=== PATIENT | male | born 1940 | race Caucasian/White ===

== ENCOUNTER 2017-04-02 08:24 | Day surgery (SDC) | payer MEDICARE, BC ==
[~2017-04-02 08:24] MED LIST: Lactated Ringers 1,000 ML IV SCH; Lidocaine 1%/Sod Bicarbonate in NS 8.4% 1 ML Syringe PRN; Sodium Chloride 0.9% 10 ML Syringe FLUSH PRN
[2017-04-02] MEDS ORDERED: Lidocaine 1% 4 ML ONE (08:31)
[2017-04-02] MEDS ORDERED: EPINEPHrine 1 MG/ML SDV ONE (08:31)
[2017-04-02] MEDS ORDERED: Ropivacaine 0.5% 5 MG/ML 30 ML SDV ONE (08:31)
--- NOTE | 2017-04-02 09:02 | PCM.PREANE ---
Preanesthetic Assessment - Anesthesia/Transfusion/Family Hx Anesthesia History: Prior Anesthesia Without Reaction Family History of Anesthesia Reaction: No Transfusion History: Prior Transfusion Without Reaction Intubation History: Unknown - Review of Systems General: No Symptoms Pulmonary: No Symptoms (history of COPD, no albuterol useage for 2 years.) Cardiovascular: No Symptoms (History of HTN, History of ASCVD- balloon angioplasty in 1996.), Palpitations (occasionally) Gastrointestinal: No symptoms (GERD) Neurological: No Symptoms (Dysphasia, late effect of CVA- (Patient denies these symptoms noted on H/P)) Other: Reports: Easy Bruising, Sinus Problem (allergic rhinitis), Depression - Physical Assessment NPO Status Date: 04/01/17 NPO Status Time: 20:00 Pulse: 62 O2 Sat by Pulse Oximetry: 96 Respiratory Rate: 16 Blood Pressure: 126/94 Temperature: 36.6 C Height: 1.7 m Weight: 63 kg ASA Class: 2 Mental Status: Alert & Oriented x3 Airway Class: Mallampati = 2 Dentition: Reports: Normal Dentition, Bridge, Missing Tooth/Teeth, Caries Thyro-Mental Finger Breadths: 3 Mouth Opening Finger Breadths: 3 ROM/Head Extension: Full Lungs: Clear to auscultation, Normal respiratory effort Cardiovascular: Regular Rate, Regular Rhythm, No Murmurs - Lab Values: Laboratory Last Values MRSA (PCR) Negative 03/17/17 15:37 Labs reviewed and noted within acceptable ranges to proceed with scheduled procedure. HGB: 13.1 HCT: 38.7 CR: 1.38 - Imaging/EKG Impressions: EKG: sinus bradycardia rate of 59, minimal ST elevation anterior leads, nonspecific intraventricular conduction delay/ (similar to prior EKG) CXR: No significant change since 01/27/2011. Hyperinflation. - Allergies Allergies/Adverse Reactions: Allergies Allergy/AdvReac Type Severity Reaction Status Date / Time No Known Drug Allergies Allergy Other Verified 04/01/17 12:50 - Anesthesia Plan Pre-Op Medication Ordered: Beta Radha Beta Radha: Metoprolol Med Last Dose Date: 04/02/17 Med Last Dose Time: 07:30 - Acknowledgements Anesthesia Type Planned: General Anesthesia (with Right interscalene block under US guidance for post operative pain control requested by Dr. Richmond) Pt an Appropriate Candidate for the Planned Anesthesia: Yes Alternatives and Risks of Anesthesia Discussed w Pt/Guardian: Yes Pt/Guardian Understands and Agrees with Anesthesia Plan: Yes PreAnesthesia Questionnaire HEENT History: Reports: Macular Degeneration Other HEENT History: impacted cerumen, hearing aids, dentures Cardiovascular History: Reports: Hypertension, PTCA, Other (See Below) Other Cardiovascular History: hyperlipedimia Respiratory History: Reports: COPD Gastrointestinal History: Reports: GERD Other Musculoskeletal History: shoulder pain Neurological History: Reports: CVA, Other (See Below) Other Neuro History: lightheadedness Psychiatric History: Reports: Depression, Other (See Below) Other Psychiatric History: insomnia Hematologic History: Reports: Anemia - Past Surgical History GI Surgical History: Reports: Colonoscopy, EGD, Hernia Repair/Other Musculoskeletal Surgical History: Reports: Hip Replacement, Knee Replacement, Shoulder Surgery, Other (See Below) Other Musculoskeletal Surgeries/Procedures:: foot surgery - SUBSTANCE USE Smoking Status *Q: Former Smoker Tobacco Use Within Last Twelve Months: Cigarettes Recreational Drug Use History: No - HOME MEDS Home Medications: Home Meds Albuterol [IJD: Albuterol HFA] 1 puff IH ASDIRECTED PRN 04/01/17 [History] Aspirin 81 mg PO DAILY 04/01/17 [History] Dutasteride [Avodart] 0.5 mg PO DAILY 04/01/17 [History] Metoprolol Succinate/HCTZ [Metoprolol ER-Hctz 100-12.5 mg] 50 mg PO DAILY [History] Multivitamin [Multivitamins] 1 cap PO DAILY 04/01/17 [History] Nitroglycerin [Nitrostat] 0.4 mg SL ASDIRECTED PRN 04/01/17 [History] Omeprazole Magnesium [Prilosec Otc] 20 mg PO DAILY 04/01/17 [History] Rosuvastatin Calcium [Crestor] 20 mg PO DAILY 04/01/17 [History] Tamsulosin [Flomax] 0.4 mg PO DAILY 04/01/17 [History] - CURRENT (IN HOUSE) MEDS Current Meds: Current Medications Lactated Ringer's (Ringers, Lactated) 1,000 mls @ 125 mls/hr IV ASDIRECTED GABY Stop: 04/02/17 23:00 Last Admin: 04/02/17 08:35 Dose: 125 mls/hr Lidocaine/Sodium Bicarbonate (Buffered Lidocaine 1% In Ns 8.4%) 0.25 ml .XX ONETIME PRN PRN Reason: Prior to IV Start Stop: 04/02/17 18:00 Last Admin: 04/02/17 08:34 Dose: 0.25 ml Sodium Chloride (Saline Flush) 10 ml FLUSH ASDIRECTED PRN PRN Reason: Keep Vein Open Stop: 04/02/17 18:00 Discontinued Medications Epinephrine HCl (Adrenalin 1:1000) Confirm Administered Dose 1 mg .ROUTE .STK- MED ONE Stop: 04/02/17 08:32 Fentanyl (Sublimaze) Confirm Administered Dose 100 mcg .ROUTE .STK-MED ONE Stop: 04/02/17 09:05 Lidocaine HCl (Xylocaine-Mpf 1%) Confirm Administered Dose 4 mls @ as directed .ROUTE .STK-MED ONE Stop: 04/02/17 08:32 Ropivacaine (Naropin 0.5%) Confirm Administered Dose 30 ml .ROUTE .STK-MED ONE Stop: 04/02/17 08:32
[2017-04-02] MEDS ORDERED: fentaNYL 100 MCG/2 ML SDV ONE ×2 (09:04→13:02)
[2017-04-02] MEDS ORDERED: EPINEPHrine 1 MG/ML 30 ML MDV ONE (09:42)
[2017-04-02] MEDS ORDERED: Propofol 200 MG/20 ML SDV ONE (10:22)
--- NOTE | 2017-04-02 10:50 | PCM.SN ---
- Free Text/Narrative Note: Anesthesia Note: (Interscalene block note) Dr. Foreman present for the block Date: 04/02/2017 Time Out: 944 Start: 944 Stop: 100 Surgical Procedure: Right Shoulder Video Arhroscopy with Rotator Cuff Repair, Subacromial decompresson Diagnosis: Right Shoulder Rotator Cuff Tear Current Procedure: Right interscalene block under US guidance for postoperative pain control requested by Dr. Richmond. Patient chart reviewed, risk/benefits discussed with patient, consent obtained. Patient positioned supine, monitors/alarms on, oxygen placed via nasal cannula at 2 LPM. IV sedation administered: Fentanyl 50 mcg IV @ 0948, 0951 Right shoulder prepped with two chloropreps. Sterile drapes placed with aseptic technique noted. Under US guidance(sterile US sleeve noted) right subclavian artery visualized along with the right brachial plexus. Plexus followed up to C6 cricoid level, and area localized with 2mls of 1% lidocaine. 22gauge 2 inch stimiplex needle advanced under US with 0.6mV with stimulation of biceps noted. Good stimulation noted with decreased voltage and absent at 0.3mVs. 1ml of Normal Saline injected with loss of stimulation noted to confirm needle not placed intraneurally. Incremental dosing of 5mls with negative aspiration noted prior to each injection of 0.5% ropivacaine with 1:200,000 epinephrine. Total volume=30mls. Vital Signs: 0945 HR: 55 RR: 16 BP: 150/75 Spo2: 100% on 2LPM nasal cannula 0950 HR: 53 RR: 10 BP: 148/67 Spo2: 99% on 2LPM nasal cannula 0955 HR: 51 RR: 14 BP: 123/68 Spo2: 99% on 2LPM nasal cannula 1000 HR: 52 RR: 12 BP: 143/69 Spo2: 98% on 2LPM nasal cannula
[2017-04-02] MEDS ORDERED: ceFAZolin 1 GM Vial ONE ×2 (11:58→15:44)
[2017-04-02] MEDS: Bupivacaine 0.25% 30 ML SDV ONE ×2 (12:54→13:35)
[2017-04-02] MEDS ORDERED: HYDROmorphone 1 MG/ML Syringe ONE ×2 (13:03→16:14)
[2017-04-02] MEDS ORDERED: fentaNYL 100 MCG/2 ML SDV IVPUSH PRN (13:39)
--- NOTE | 2017-04-02 14:18 | PCM.POSTAN ---
POST ANESTHESIA ASSESSMENT - MENTAL STATUS Mental Status: alert, oriented - VITAL SIGNS Pulse Rate: 65 SaO2: 99 Resp Rate: 12 Blood Pressure: 169/89 Temperature: 36.4 C - RESPIRATORY Respiratory Status: respiratory rate WNL, airway patent, O2 saturation stable - CARDIOVASCULAR CV Status: pulse rate WNL, blood pressure stable - GASTROINTESTINAL GI Status: no symptoms - PAIN Pain Score: 0 - POST OP HYDRATION Hydration Status: adequate & stable
[2017-04-02] MEDS ORDERED: NIFEdipine 10 MG Cap PO ONE (14:44)
[2017-04-02] MEDS ORDERED: fentaNYL 250 MCG/5 ML SDV ONE (15:44)
[2017-04-02] MEDS ORDERED: Ondansetron 4 MG/2 ML SDV ONE ×2 (16:11→16:13)
--- NOTE | 2017-04-02 16:32 | PCM48HPAN ---
Post Anesthesia Note - EVALUATION WITHIN 48HRS OF ANESTHETIC Vital Signs in Normal Range: Yes Patient Participated in Evaluation: Yes Respiratory Function Stable: Yes Airway Patent: Yes Cardiovascular Function Stable: Yes Hydration Status Stable: Yes Pain Control Satisfactory: Yes Nausea and Vomiting Control Satisfactory: Yes Mental Status Recovered: Yes
[2017-04-02 16:42] VITALS: BP 132/80
--- NOTE | 2017-04-03 07:37 | PCM.OPNOTE ---
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
--- NOTE | 2017-04-03 08:34 | OR ---
DATE OF OPERATION: 04/02/2017 SURGEON: Ricki Richmond MD OPERATION PERFORMED: Right shoulder arthroscopy with massive rotator cuff repair. PREOPERATIVE DIAGNOSIS: Right shoulder rotator cuff tear. 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 ANESTHESIA: General endotracheal intubation with regional supraclavicular block. ANESTHESIA PROVIDER: Lyndon Foreman MD. PUMPER HELPER: KIERSTEN Rivera. ESTIMATED BLOOD LOSS: 5 mL. COMPLICATIONS: None. CONDITION: Stable. DESCRIPTION OF PROCEDURE: The patient was identified in the preoperative holding area. Proper site was marked and identified by the surgeon. The patient was taken back to the OR. After adequate anesthesia, the patient was placed in the lazy left lateral decubitus position. A wedge was placed posteriorly. All bony prominences were well padded. The patient was secured to the table. The right shoulder was then sterilely prepped and draped in the usual sterile fashion. OR time-out was performed. The patient received 2 g IV Ancef. At this time, 12 pounds of traction was applied to the right upper extremity. Incision was made posteriorly, scope trocar was introduced to the glenohumeral joint. At this time, the patient was noted to have previous biceps rupture with no attachment with the biceps. Subscapularis was intact. 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 The patient was noted to have a massive rotator cuff tear with no rotator cuff tissue, footprint at all. At this time, the scope trocar was removed and placed in the subacromial space. The patient's rotator cuff was noted to be at the level of the glenoid. At this time, a bursectomy was carried out and then a [employer] grasper was used to grab the tendon. It was found that it had little excursion, at this time, a significant work was done to free up the rotator cuff. A Bolivar elevator was placed over the top of the glenoid and release of the rotator cuff was then done at the rotator interval and part of the supra and infraspinatus tendons were split to allow for better excursion. At this time, with medialization of the footprint with a hiwot, I was able to get coverage of most of the footprint after considerable effort to free up the rotator cuff. At this time, 2 Arthrex 4.75 mm SwiveLock anchor was replaced for a medial row. The 2 limbs of FiberTape and the 4 limbs of FiberWire on the anterior anchor were then passed through from anterior to posterior and then in the posterior anchor, this in similar fashion, they were passed from the midportion all the way to the posterior portion of the rotator cuff. At this time for a medial row repair, all the limbs of the FiberWire were tied for medial row repair, which brought over the rotator cuff. Next, these were all cut and the 4 limbs of FiberTape were then brought over laterally and 2 separate lateral row anchors. This found good coverage of the footprint that was medialized secondary to the less excursion of the tendon. At this time, excess saline was drained from the shoulder. A 3-0 nylon simple suture was used for closure of the skin. The patient was placed in a pillow sling and sterile soft dressing, and tolerated the procedure well. KODI /[id number]
== END 2017-04-02 16:35 | disposition home or self-care (01) ==
LOC: JD.SDS 08:24
PROVIDERS: ATTEND Orthopaedic Surgery
PROC: 0LQ14ZZ Repair Right Shoulder Tendon, Percutaneous Endoscopic Approach (ICD-10-PCS; principal; 2017-04-02)
DX: M75.121 Complete rotator cuff tear or rupture of right shoulder, not specified as traumatic (principal); M94.211 Chondromalacia, right shoulder; I25.10 Atherosclerotic heart disease of native coronary artery without angina pectoris; I10 Essential (primary) hypertension; J44.9 Chronic obstructive pulmonary disease, unspecified; J30.9 Allergic rhinitis, unspecified; K21.9 Gastro-esophageal reflux disease without esophagitis; K59.00 Constipation, unspecified; E78.5 Hyperlipidemia, unspecified; E78.00 Pure hypercholesterolemia, unspecified; D64.9 Anemia, unspecified; F32.9 Major depressive disorder, single episode, unspecified; Z79.82 Long term (current) use of aspirin; Z79.899 Other long term (current) drug therapy; Z96.649 Presence of unspecified artificial hip joint; Z96.659 Presence of unspecified artificial knee joint; Z98.890 Other specified postprocedural states; Z87.891 Personal history of nicotine dependence; M25.511 Pain in right shoulder
CPT/HCPCS: 29827; 87641; A9270; C1713; J0171; J0690; J1170; J2405; J2795; J3010; J7120; 01630; 64415; J2704; J3490

== ENCOUNTER 2017-04-25 01:09 | Inpatient (IN) | payer MEDICARE, BC ==
--- NOTE | 2017-04-25 03:11 | EDM.PDOC ---
ED HPI GENERAL MEDICAL PROBLEM - General Chief Complaint: Respiratory Problem Stated Complaint: SOB Time Seen by Provider: 04/25/17 01:29 Source of Information: Reports: Patient, Family (Son), RN Notes Reviewed History Limitations: Reports: Other (The patient is a very poor historian) - History of Present Illness INITIAL COMMENTS - FREE TEXT/NARRATIVE: The patient states that he has been feeling lightheaded and dizzy for about 3 weeks, ever since he had right shoulder rotator cuff arthroscopy (which medical records indicate was on 04/02/2017, per Dr. Richmond). He denies having pain, but states that he can't get comfortable. He states that he was prescribed a pain medication, but only took it for about 2 days before discontinuing it because of hallucinations. He reports that he has had dyspnea that has been coming and going for more than one month, but that it was severe tonight. At this time, he denies having dyspnea, stating that the dyspnea resolved on its own. He states that he has had nausea and 2 episodes of vomiting tonight. He has had constipation. No dysuria, but he has a weak urinary stream. He acknowledges that he has been feeling very anxious, and was prescribed an antidepressant 2 days ago, per Dr. Ceja. No recent fever, diarrhea, chest pain, or palpitations. - Related Data Allergies Allergy/AdvReac Type Severity Reaction Status Date / Time acetaminophen [From Percocet] Allergy Anxiety Verified 04/25/17 01:24 oxycodone [From Percocet] Allergy Anxiety Verified 04/25/17 01:24 Home Meds: Home Meds Albuterol [IJD: Albuterol HFA] 2 puff INH Q4H PRN 04/01/17 [History] Aspirin 81 mg PO DAILY 04/01/17 [History] Dutasteride [Avodart] 0.5 mg PO DAILY 04/01/17 [History] Metoprolol Succinate/HCTZ [Metoprolol ER-Hctz 100-12.5 mg] 50 mg PO DAILY [History] Multivitamin [Multivitamins] 1 cap PO DAILY 04/01/17 [History] Nitroglycerin [Nitrostat] 0.4 mg SL ASDIRECTED PRN 04/01/17 [History] Omeprazole Magnesium [Prilosec Otc] 20 mg PO DAILY 04/01/17 [History] Rosuvastatin Calcium [Crestor] 20 mg PO DAILY 04/01/17 [History] Tamsulosin [Flomax] 0.4 mg PO DAILY 04/01/17 [History] LORazepam [Ativan] 0.5 mg PO QID PRN 04/25/17 [History] Venlafaxine [Effexor XR] 37.5 mg PO DAILY 04/25/17 [History] Past Medical History HEENT History: Reports: Macular Degeneration Cardiovascular History: Reports: CAD, High Cholesterol, Hypertension, [place] Respiratory History: Reports: COPD Gastrointestinal History: Reports: GERD Genitourinary History: Reports: BPH Psychiatric History: Reports: Anxiety, Depression Hematologic History: Reports: Anemia - Past Surgical History HEENT Surgical History: Reports: Cataract Surgery Cardiovascular Surgical History: Reports: Coronary Artery Stent (x 2) GI Surgical History: Reports: Colonoscopy, EGD, Hernia, Inguinal (left) Musculoskeletal Surgical History: Reports: Shoulder Surgery (right rotator cuff , arthroscopically, 04/02/17), Other (See Below) (Pelvis sugery, Right foot surgery) Social & Family History - Tobacco Use Smoking Status *Q: Former Smoker Years of Tobacco use: 10 Packs/Tins Daily: 1.5 Month Tobacco Last Used: Quit 1986 - Caffeine Use Caffeine Use: Reports: Coffee - Alcohol Use Alcohol Use History: No - Recreational Drug Use Recreational Drug Use: No - Living Situation & Occupation Living situation: Reports: , with Spouse Occupation: Retired ED ROS GENERAL - Review of Systems Review Of Systems: See Below Constitutional: Reports: No Symptoms. Denies: Fever HEENT: Reports: No Symptoms Respiratory: Reports: Shortness of Breath. Denies: Cough Cardiovascular: Reports: Lightheadedness. Denies: Chest Pain, Palpitations Endocrine: Reports: No Symptoms GI/Abdominal: Reports: Constipation, Nausea, Vomiting. Denies: Diarrhea : Reports: No Symptoms. Denies: Dysuria Musculoskeletal: Reports: No Symptoms Skin: Reports: No Symptoms Neurological: Reports: No Symptoms Psychiatric: Reports: Anxiety Hematologic/Lymphatic: Reports: No Symptoms Immunologic: Reports: No Symptoms ED EXAM, GENERAL - Physical Exam Exam: See Below Exam Limited By: Physical Impairment (Right arm strapped across abdomen) General Appearance: Alert, WD/WN, No Apparent Distress Eye Exam: Bilateral Eye: Normal Inspection Ears: Normal External Exam, Hearing Grossly Normal Nose: Normal Inspection, No Blood Throat/Mouth: Normal Inspection, Normal Lips, Normal Voice, No Airway Compromise Head: Atraumatic, Normocephalic Neck: Normal Inspection, Full Range of Motion Respiratory/Chest: No Respiratory Distress, Lungs Clear, Normal Breath Sounds, No Accessory Muscle Use Cardiovascular: Normal Peripheral Pulses, Regular Rate, Rhythm, No Gallop, No JVD, No Murmur, No Rub Peripheral Pulses: 4+: Radial (L) GI/Abdominal: Normal Bowel Sounds, Soft, Non-Tender, No Organomegaly, No Distention, No Abnormal Bruit, No Mass (Male) Exam: Deferred Rectal (Males) Exam: Deferred Back Exam: Normal Inspection, Full Range of Motion, NT Extremities: No Pedal Edema, Normal Capillary Refill, Other (RUE strapped to body) Neurological: Alert, Oriented, No Motor/Sensory Deficits, Confused, Slow to Respond Psychiatric: Anxious Skin Exam: Warm, Dry, Intact, Normal Color, No Rash Lymphatic: No Adenopathy EKG INTERPRETATION EKG Date: 04/25/17 Time: 03:08 Rhythm: Other (Sinus bradycardia) Rate (Beats/Min): 58 Jackson: Normal P-Wave: Present QRS: Normal ST-T: Normal (J-point elevation in V2, V3, but no acute ST or T-wave changes) QT: Normal Comparison: NA - No Prior EKG Course - Vital Signs Last Recorded V/S: Last Vital Signs Temp 35.5 C 04/25/17 01:17 Pulse 65 04/25/17 05:56 Resp 16 04/25/17 05:56 BP 152/99 H 04/25/17 01:17 Pulse Ox 95 04/25/17 05:56 Orthostatic Blood Pressure [ 155/84 Standing] Orthostatic Blood Pressure [ 167/93 Sitting] Orthostatic Blood Pressure [ 173/80 Supine] - Orders/Labs/Meds Orders: Active Orders 24 hr Category Date Time Status EKG Documentation Completion [RC] STAT Care 04/25/17 02:55 Active Orthostatic Vital Signs [RC] STAT Care 04/25/17 02:55 Active Ang Chest [CT] Stat Exams 04/25/17 04:08 Taken Chest 2V [CR] Stat Exams 04/25/17 02:55 Taken Sodium Chloride 0.9% [Normal Saline] 1,000 ml Med 04/25/17 04:15 Active IV ASDIRECTED Sodium Chloride 0.9% [Normal Saline] 100 ml Med 04/25/17 04:45 Active IV ASDIRECTED Medication Orders Sodium Chloride (Normal Saline) 1,000 mls @ 150 mls/hr IV ASDIRECTED GABY Last Admin: 04/25/17 04:19 Dose: 150 mls/hr Sodium Chloride (Normal Saline) 100 mls @ 60 mls/hr IV ASDIRECTED GABY Last Admin: 04/25/17 04:52 Dose: 60 mls/hr Labs: Laboratory Tests 04/25/17 04/25/17 04/25/17 Range/Units 03:07 03:07 03:07 WBC 8.11 (4.23-9.07) K/mm3 RBC 4.25 L (4.63-6.08) M/mm3 Hgb 12.5 L (13.7-17.5) gm/L Hct 35.6 L (40.1-51.0) % MCV 83.8 (79.0-92.2) fl MCH 29.4 (25.7-32.2) pg MCHC 35.1 (32.2-35.5) g/dl RDW Std Deviation 37.5 (35.1-43.9) fL Plt Count 232 (163-337) K/mm3 MPV 10.2 (9.4-12.3) fl Neutrophils % (Manual) 74 H (40-60) % Band Neutrophils % 0 (0-10) % Lymphocytes % (Manual) 16 L (20-40) % Atypical Lymphs % 0 % Monocytes % (Manual) 8 (2-10) % Eosinophils % (Manual) 2 (0.8-7.0) % Basophils % (Manual) 0 L (0.2-1.2) Toxic Granulation See note Platelet Estimate Adequate Plt Morphology Comment Normal RBC Morph Comment Normal PT 11.2 (8.0-13.0) SECONDS INR 1.03 APTT 34 (22-36) SECONDS D-Dimer, Quantitative 2.42 H (0.19-0.59) mg/L Puncture Site ABG pH (7.35-7.45) ABG pCO2 (35.0-45.0) mmHg ABG pO2 (80.0-100.0) mmHg ABG HCO3 (22.0-26.0) meq/L Luke Test A-a Gradient mmHg FiO2 (21.00-100.00) % Sodium 124 L (136-145) mEq/L Potassium 4.4 (3.5-5.1) mEq/L Chloride 91 L (98-107) mEq/L Carbon Dioxide 27 (21-32) mEq/L Anion Gap 10.4 (5-15) BUN 16 (7-18) mg/dL Creatinine 1.0 (0.7-1.3) mg/dL Est Cr Clr Drug Dosing 57.42 mL/min Estimated GFR (MDRD) > 60 (>60) mL/min BUN/Creatinine Ratio 16.0 (14-18) Glucose 117 H (83-115) mg/dL Serum Osmolality (280-300) mosm/kg Uric Acid (3.5-7.2) mg/dL Calcium 8.6 (8.5-10.1) mg/dL Magnesium 1.9 (1.8-2.4) mg/dl Total Bilirubin 0.6 (0.2-1.0) mg/dL AST 36 (15-37) U/L ALT 56 (16-63) U/L Alkaline Phosphatase 66 (46-116) U/L Troponin I < 0.017 (0.00-0.056) ng/mL B-Natriuretic Peptide (0-100) pg/mL Total Protein 6.4 (6.4-8.2) g/dl Albumin 3.6 (3.4-5.0) g/dl Globulin 2.8 gm/dL Albumin/Globulin Ratio 1.3 (1-2) TSH 3rd Generation 3.862 H (0.358-3.74) uIU/mL Urine Color (Yellow) Urine Appearance (Clear) Urine pH (5.0-8.0) Ur Specific [place] (1.005-1.030) Urine Protein (Negative) Urine Glucose (UA) (Negative) Urine Ketones (Negative) Urine Occult Blood (Negative) Urine Nitrite (Negative) Urine Bilirubin (Negative) Urine Urobilinogen (0.2-1.0) Ur Leukocyte Esterase (Negative) Urine RBC (0-5) /hpf Urine WBC (0-5) /hpf Ur Epithelial Cells (0-5) /hpf Urine Bacteria (FEW) /hpf Urine Mucus (FEW) /hpf Urine Osmolality (400-1100) mosm/kg Ur Random Sodium (40-220) mEq/L 04/25/17 04/25/17 04/25/17 Range/Units 03:07 03:07 03:20 WBC (4.23-9.07) K/mm3 RBC (4.63-6.08) M/mm3 Hgb (13.7-17.5) gm/L Hct (40.1-51.0) % MCV (79.0-92.2) fl MCH (25.7-32.2) pg MCHC (32.2-35.5) g/dl RDW Std Deviation (35.1-43.9) fL Plt Count (163-337) K/mm3 MPV (9.4-12.3) fl Neutrophils % (Manual) (40-60) % Band Neutrophils % (0-10) % Lymphocytes % (Manual) (20-40) % Atypical Lymphs % % Monocytes % (Manual) (2-10) % Eosinophils % (Manual) (0.8-7.0) % Basophils % (Manual) (0.2-1.2) Toxic Granulation Platelet Estimate Plt Morphology Comment RBC Morph Comment PT (8.0-13.0) SECONDS INR APTT (22-36) SECONDS D-Dimer, Quantitative (0.19-0.59) mg/L Puncture Site Lt radial ABG pH 7.44 (7.35-7.45) ABG pCO2 40.5 (35.0-45.0) mmHg ABG pO2 76.0 L (80.0-100.0) mmHg ABG HCO3 26.9 H (22.0-26.0) meq/L Luke Test Positive A-a Gradient 8 mmHg FiO2 21.00 (21.00-100.00) % Sodium (136-145) mEq/L Potassium (3.5-5.1) mEq/L Chloride (98-107) mEq/L Carbon Dioxide (21-32) mEq/L Anion Gap (5-15) BUN (7-18) mg/dL Creatinine (0.7-1.3) mg/dL Est Cr Clr Drug Dosing mL/min Estimated GFR (MDRD) (>60) mL/min BUN/Creatinine Ratio (14-18) Glucose (83-115) mg/dL Serum Osmolality 255 L (280-300) mosm/kg Uric Acid 4.1 (3.5-7.2) mg/dL Calcium (8.5-10.1) mg/dL Magnesium (1.8-2.4) mg/dl Total Bilirubin (0.2-1.0) mg/dL AST (15-37) U/L ALT (16-63) U/L Alkaline Phosphatase (46-116) U/L Troponin I (0.00-0.056) ng/mL B-Natriuretic Peptide 136 H (0-100) pg/mL Total Protein (6.4-8.2) g/dl Albumin (3.4-5.0) g/dl Globulin gm/dL Albumin/Globulin Ratio (1-2) TSH 3rd Generation (0.358-3.74) uIU/mL Urine Color (Yellow) Urine Appearance (Clear) Urine pH (5.0-8.0) Ur Specific [place] (1.005-1.030) Urine Protein (Negative) Urine Glucose (UA) (Negative) Urine Ketones (Negative) Urine Occult Blood (Negative) Urine Nitrite (Negative) Urine Bilirubin (Negative) Urine Urobilinogen (0.2-1.0) Ur Leukocyte Esterase (Negative) Urine RBC (0-5) /hpf Urine WBC (0-5) /hpf Ur Epithelial Cells (0-5) /hpf Urine Bacteria (FEW) /hpf Urine Mucus (FEW) /hpf Urine Osmolality (400-1100) mosm/kg Ur Random Sodium (40-220) mEq/L 04/25/17 04/25/17 Range/Units 03:40 03:40 WBC (4.23-9.07) K/mm3 RBC (4.63-6.08) M/mm3 Hgb (13.7-17.5) gm/L Hct (40.1-51.0) % MCV (79.0-92.2) fl MCH (25.7-32.2) pg MCHC (32.2-35.5) g/dl RDW Std Deviation (35.1-43.9) fL Plt Count (163-337) K/mm3 MPV (9.4-12.3) fl Neutrophils % (Manual) (40-60) % Band Neutrophils % (0-10) % Lymphocytes % (Manual) (20-40) % Atypical Lymphs % % Monocytes % (Manual) (2-10) % Eosinophils % (Manual) (0.8-7.0) % Basophils % (Manual) (0.2-1.2) Toxic Granulation Platelet Estimate Plt Morphology Comment RBC Morph Comment PT (8.0-13.0) SECONDS INR APTT (22-36) SECONDS D-Dimer, Quantitative (0.19-0.59) mg/L Puncture Site ABG pH (7.35-7.45) ABG pCO2 (35.0-45.0) mmHg ABG pO2 (80.0-100.0) mmHg ABG HCO3 (22.0-26.0) meq/L Luke Test A-a Gradient mmHg FiO2 (21.00-100.00) % Sodium (136-145) mEq/L Potassium (3.5-5.1) mEq/L Chloride (98-107) mEq/L Carbon Dioxide (21-32) mEq/L Anion Gap (5-15) BUN (7-18) mg/dL Creatinine (0.7-1.3) mg/dL Est Cr Clr Drug Dosing mL/min Estimated GFR (MDRD) (>60) mL/min BUN/Creatinine Ratio (14-18) Glucose (83-115) mg/dL Serum Osmolality (280-300) mosm/kg Uric Acid (3.5-7.2) mg/dL Calcium (8.5-10.1) mg/dL Magnesium (1.8-2.4) mg/dl Total Bilirubin (0.2-1.0) mg/dL AST (15-37) U/L ALT (16-63) U/L Alkaline Phosphatase (46-116) U/L Troponin I (0.00-0.056) ng/mL B-Natriuretic Peptide (0-100) pg/mL Total Protein (6.4-8.2) g/dl Albumin (3.4-5.0) g/dl Globulin gm/dL Albumin/Globulin Ratio (1-2) TSH 3rd Generation (0.358-3.74) uIU/mL Urine Color Yellow (Yellow) Urine Appearance Clear (Clear) Urine pH 7.0 (5.0-8.0) Ur Specific [place] 1.015 (1.005-1.030) Urine Protein Negative (Negative) Urine Glucose (UA) Negative (Negative) Urine Ketones Negative (Negative) Urine Occult Blood Negative (Negative) Urine Nitrite Negative (Negative) Urine Bilirubin Negative (Negative) Urine Urobilinogen 1.0 (0.2-1.0) Ur Leukocyte Esterase Negative (Negative) Urine RBC 0-5 (0-5) /hpf Urine WBC 0-5 (0-5) /hpf Ur Epithelial Cells 0-5 (0-5) /hpf Urine Bacteria Few (FEW) /hpf Urine Mucus Not seen (FEW) /hpf Urine Osmolality 265 L (400-1100) mosm/kg Ur Random Sodium 45 (40-220) mEq/L Meds: Medications Generic Name Dose Route Start Last Admin Trade Name Freq PRN Reason Stop Dose Admin Sodium Chloride 1,000 mls @ 150 mls/hr 04/25/17 04:15 04/25/17 04:19 Normal Saline IV 150 mls/hr ASDIRECTED GABY Administration Sodium Chloride 100 mls @ 60 mls/hr 04/25/17 04:45 04/25/17 04:52 Normal Saline IV 60 mls/hr ASDIRECTED GABY Administration Discontinued Medications Generic Name Dose Route Start Last Admin Trade Name Freq PRN Reason Stop Dose Admin Iopamidol 100 ml 04/25/17 04:34 04/25/17 04:52 Isovue-370 (76%) IVPUSH 04/25/17 04:35 100 ml ONETIME ONE Administration Sodium Chloride 10 ml 04/25/17 04:34 04/25/17 04:52 Saline Flush FLUSH 04/25/17 04:35 10 ml ONETIME ONE Administration - Re-Assessments/Exams Free Text/Narrative Re-Assessment/Exam: 04/25/17 03:09 The patient is not orthostatic. 04/25/17 03:35 Two-view chest radiograph appears to be grossly normal. Cardiac silhouette is within normal limits. No pulmonary vascular congestion. No pleural effusions. No focal infiltrate. No pneumothorax. Formal read per the Radiologist pending. 04/25/17 04:11 The patient's sodium has returned significantly depressed at 124, which could explain the patient's sense of lightheadedness and his difficulty in providing a medical history. No prior chemistry panel for comparison. His D-dimer is elevated at 2.42, which could be the result of his recent surgery however, a pulmonary embolus needs to be ruled out, therefore I have ordered a CT angiogram. I have ordered normal saline, which is also indicated as initial treatment of the patient's hyponatremia. 04/25/17 04:17 The patient is on hydrochlorothiazide, which may be responsible for his hyponatremia. In order to facilitate diagnosis, I have added a serum osmolality , serum uric acid, urine osmolality, and urine sodium to the patient's labs. 04/25/17 05:26 The patient's serum osmolality is low at 255, indicating hypotonic hyponatremia. Clinically, he is euvolemic. His BUN is relatively low and his Cr is normal, indicating no renal dysfunction. His urine osmolality is very low at 265 with a normal urine sodium of 45. His serum uric acid level is relatively low at 4.1. 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 Treatment is to stop the thiazide diuretic, which should correct the hyponatremia fairly quickly. 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 04/25/17 05:40 CT angiogram of the chest is read by virtual radiology as: 1. No evidence of pulmonary embolus to the segmental level. 2. No aneurysm of the descending aorta. 3. No dissection of the aorta. 04/25/17 05:[address] Green at 05:53. She agrees to admit the patient to [facility] telemetry. Departure - Departure Time of Disposition: 05:58 Disposition: Admitted As Inpatient 64 Condition: Fair Clinical Impression: Hyponatremia - Discharge Information - My Orders Last 24 Hours: My Active Orders 04/25/17 02:55 EKG Documentation Completion [RC] STAT Orthostatic Vital Signs [RC] STAT Chest 2V [CR] Stat 04/25/17 04:08 Ang Chest [CT] Stat 04/25/17 04:15 Sodium Chloride 0.9% [Normal Saline] 1,000 ml IV ASDIRECTED 04/25/17 04:45 Sodium Chloride 0.9% [Normal Saline] 100 ml IV ASDIRECTED - Assessment/Plan Last 24 Hours: My Active Orders 04/25/17 02:55 EKG Documentation Completion [RC] STAT Orthostatic Vital Signs [RC] STAT Chest 2V [CR] Stat 04/25/17 04:08 Ang Chest [CT] Stat 04/25/17 04:15 Sodium Chloride 0.9% [Normal Saline] 1,000 ml IV ASDIRECTED 04/25/17 04:45 Sodium Chloride 0.9% [Normal Saline] 100 ml IV ASDIRECTED
[2017-04-25] MEDS: Sodium Chloride 0.9% 1,000 ML IV SCH ×2 (04:19→13:15)
[2017-04-25] MEDS ORDERED: Iopamidol 755 Mg/ML 100 ML Bottle IVPUSH ONE (04:34)
[2017-04-25] MEDS ORDERED: Sodium Chloride 0.9% 10 ML Syringe FLUSH ONE (04:34)
[2017-04-25] MEDS ORDERED: Sodium Chloride 0.9% 100 ML IV SCH (04:45)
--- NOTE | 2017-04-25 10:26 | CR ---
Chest: Two views of the chest were obtained. Comparison: No previous chest x-ray is available, study is compared to subsequent chest CT performed as a pulmonary angiogram. Heart size is within normal limits. Tortuous thoracic aorta is seen. Lungs are hyperinflated compatible with emphysematous change. Old appearing left-sided rib fractures are seen. Previous right shoulder surgery is noted. Scoliosis noted within the spine. No acute infiltrates are seen. Impression: 1. Emphysematous change. Other incidental findings. Nothing acute is appreciated. Diagnostic code #2
--- NOTE | 2017-04-25 10:26 | CT ---
CT chest Technique: Multiple axial sections through the chest were obtained. Reconstructed coronal and sagittal images were obtained. Intravenous contrast was utilized. Study was performed as a pulmonary angiogram protocol. Comparison: Previous chest x-ray performed earlier on the same day. Findings: Pulmonary arteries are well opacified. No filling defects are seen to indicate pulmonary embolism. Atherosclerotic change noted within the thoracic aorta. Coronary artery calcification is seen. No pericardial thickening is seen. Cyst is identified within the left kidney measuring 3.1 cm. Small nodular density within the left lung apex most likely due to small area of scarring. There is a small nodule being seen within the right upper lung measuring about 1.5 mm. Second nodule is seen next to the major fissure on the left side within the left lower lung measuring 3 mm. Lungs otherwise are clear. Emphysematous change is seen. Minimal bronchiectasis is present. Bone window settings show scattered degenerative endplate spurring within the spine. Impression: 1. No findings of pulmonary embolism. 2. Several small nodules within the chest. Recommend follow-up noncontrast chest CT in one year to confirm stability. 3. Other incidental findings as noted above. Diagnostic code #9 I agree with preliminary report issued by [facility] ([facility] report finalized on 04/25/17, 6:37 AM Central Time)
--- NOTE | 2017-04-25 10:28 | PCM.HP ---
H&P History of Present Illness - General Date of Service: 04/25/17 Admit Problem/Dx: Admission Diagnosis/Problem Admission Diagnosis/Problem Hyponatremia Source of Information: Patient, Family, Provider History Limitations: Reports: No Limitations - History of Present Illness Initial Comments - Free Text/Narative: 76 year old male who reports feeling lightheaded for several weeks. He has recently had a right shoulder procedure in late March 2017. Associated with the lightheadedness has been SOB. He denies any fever or chills; he has had nausea with vomiting that occurred on the day of admission. The pain medication prescribed by Dr Richmond made him nauseated, he took it roughly two times with the same result. Recently he has had some medication changes which may have included the stopping of HCTZ. Additionally he has had an antidepressant started by his PCP. Labs taken by ED document hyponatremia, a comparison will be made with his lab studies taken at the time of his shoulder procedure, if performed. Onset of Symptoms: Reports: Gradual Duration of Symptoms: Reports: Week(s):, Getting Worse Location: Reports: Generalized Quality: Reports: Same as Previous Episode Improves with: Reports: Medication Worsens with: Reports: Movement Associated Symptoms: Reports: Nausea/Vomiting, Shortness of Breath - Related Data Allergies/Adverse Reactions: Allergies Allergy/AdvReac Type Severity Reaction Status Date / Time acetaminophen [From Percocet] Allergy Anxiety Verified 04/25/17 01:24 oxycodone [From Percocet] Allergy Anxiety Verified 04/25/17 01:24 Home Medications: Home Meds Albuterol [IJD: Albuterol HFA] 2 puff INH Q4HR PRN 04/01/17 [History] Dutasteride [Avodart] 0.5 mg PO DAILY 04/01/17 [History] Multivitamin [Multivitamins] 1 cap PO DAILY 04/01/17 [History] Nitroglycerin [Nitrostat] 0.4 mg SL ASDIRECTED PRN 04/01/17 [History] Omeprazole Magnesium [Prilosec Otc] 20 mg PO DAILY 04/01/17 [History] Rosuvastatin Calcium [Crestor] 20 mg PO DAILY 04/01/17 [History] Tamsulosin [Flomax] 0.4 mg PO DAILY 04/01/17 [History] Aspirin [Ecotrin] 81 mg PO DAILY 04/25/17 [History] LORazepam [Ativan] 0.5 mg PO QID PRN 04/25/17 [History] Metoprolol Tartrate [Lopressor] 50 mg PO DAILY 04/25/17 [History] Venlafaxine [Effexor XR] 37.5 mg PO DAILY 04/25/17 [History] Past Medical History HEENT History: Reports: Macular Degeneration Other HEENT History: impacted cerumen, hearing aids, dentures Cardiovascular History: Reports: CAD, High Cholesterol, Hypertension, [place] Other Cardiovascular History: hyperlipedimia Respiratory History: Reports: COPD Gastrointestinal History: Reports: GERD Genitourinary History: Reports: BPH Other Musculoskeletal History: shoulder pain Neurological History: Reports: CVA, Other (See Below) Other Neuro History: lightheadedness Psychiatric History: Reports: Anxiety, Depression Other Psychiatric History: insomnia Hematologic History: Reports: Anemia - Past Surgical History HEENT Surgical History: Reports: Cataract Surgery Cardiovascular Surgical History: Reports: Coronary Artery Stent GI Surgical History: Reports: Colonoscopy, EGD, Hernia, Inguinal Musculoskeletal Surgical History: Reports: Shoulder Surgery, Other (See Below) Other Musculoskeletal Surgeries/Procedures:: right shoulder surgery 3 weeks ago. previous rtkr and ltkr Social & Family History - Family History Family Medical History: Noncontributory - Tobacco Use Smoking Status *Q: Former Smoker Years of Tobacco use: 6 Packs/Tins Daily: 1.5 Used Tobacco, but Quit: No Month Tobacco Last Used: 10/05/1966 Second Hand Smoke Exposure: No - Caffeine Use Caffeine Use: Reports: Coffee - Recreational Drug Use Recreational Drug Use: No Drug Use in Last 12 Months: No - Living Situation & Occupation Living situation: Reports: , with Spouse Occupation: Retired H&P Review of Systems - Review of Systems: Review Of Systems: See Below General: Reports: Weakness HEENT: Reports: No Symptoms Pulmonary: Reports: Shortness of Breath Cardiovascular: Reports: Lightheadedness Gastrointestinal: Reports: No Symptoms Genitourinary: Reports: No Symptoms Musculoskeletal: Reports: No Symptoms Skin: Reports: No Symptoms Psychiatric: Reports: No Symptoms Neurological: Reports: No Symptoms Hematologic/Lymphatic: Reports: No Symptoms Immunologic: Reports: No Symptoms Exam - Exam Exam: See Below - Vital Signs Vital Signs: Last Vital Signs Temp 36.5 C 04/25/17 07:44 Pulse 58 L 04/25/17 07:44 Resp 18 04/25/17 07:44 BP 158/63 H 04/25/17 07:44 Pulse Ox 96 04/25/17 07:44 Weight: 63.73 kg - Exam Quality Assessment: DVT Prophylaxis General: Alert, Oriented, Cooperative HEENT: Conjunctiva Clear, Hearing Intact, Mucosa Moist & [place], Nares Patent, Normal Nasal Septum, Pupils Equal, Pupils Reactive Neck: Supple, Trachea Midline Lungs: Clear to Auscultation, Normal Respiratory Effort Cardiovascular: Regular Rate, Regular Rhythm GI/Abdominal Exam: Normal Bowel Sounds, Soft, Non-Tender, No Organomegaly (Male) Exam: Deferred Rectal (Males) Exam: Deferred Back Exam: Normal Inspection Extremities: Normal Inspection Skin: Warm Neurological: Cranial Nerves Intact Neuro Extensive - Mental Status: Alert, Oriented x3, Normal Mood/Affect, Normal Cognition, Memory Intact Neuro Extensive - Motor, Sensory, Reflexes: CN II-XII Intact Psychiatric: Alert, Normal Affect, Normal Mood - Patient Data Result Diagrams: 04/26/17 06:04 04/26/17 06:04 *Q Meaningful Use (ADM) - VTE *Q VTE Criteria *Q: - Stroke *Q Stroke Criteria *Q: - AMI *Q AMI Criteria *Q: - Problem List (1) CAD (coronary artery disease) SNOMED Code(s): 81202074 ICD Code: I25.10 - ATHSCL HEART DISEASE OF [place] CORONARY ARTERY W/O ANG PCTRS Status: Acute Current Visit: Yes (2) Hypertension SNOMED Code(s): 68974972 ICD Code: I10 - ESSENTIAL (PRIMARY) HYPERTENSION Status: Acute Current Visit: Yes (3) Hyperlipidemia SNOMED Code(s): 83309075 ICD Code: E78.5 - HYPERLIPIDEMIA, UNSPECIFIED Status: Acute Current Visit : Yes (4) BPH (benign prostatic hyperplasia) SNOMED Code(s): 042882144, 580784035 ICD Code: N40.0 - BENIGN PROSTATIC HYPERPLASIA WITHOUT LOWER URINRY TRACT SYMP Status: Acute Current Visit: Yes (5) COPD (chronic obstructive pulmonary disease) SNOMED Code(s): 40927814 ICD Code: J44.9 - CHRONIC OBSTRUCTIVE PULMONARY DISEASE, UNSPECIFIED Status : Acute Current Visit: Yes (6) GERD (gastroesophageal reflux disease) SNOMED Code(s): 636689816 ICD Code: K21.9 - GASTRO-ESOPHAGEAL REFLUX DISEASE WITHOUT ESOPHAGITIS Status: Acute Current Visit: Yes (7) Myocardial infarct, old SNOMED Code(s): 9547880 ICD Code: I25.2 - OLD MYOCARDIAL INFARCTION Status: Acute Current Visit: Yes (8) GERD (gastroesophageal reflux disease) SNOMED Code(s): 821908824 ICD Code: K21.9 - GASTRO-ESOPHAGEAL REFLUX DISEASE WITHOUT ESOPHAGITIS Status: Acute Current Visit: Yes (9) Anxiety SNOMED Code(s): 10115758 ICD Code: F41.9 - ANXIETY DISORDER, UNSPECIFIED Status: Acute Current Visit: Yes (10) Depression SNOMED Code(s): 33714545 ICD Code: F32.9 - MAJOR DEPRESSIVE DISORDER, SINGLE EPISODE, UNSPECIFIED Status: Acute Current Visit: Yes (11) Hyponatremia SNOMED Code(s): 33837630 ICD Code: E87.1 - HYPO-OSMOLALITY AND HYPONATREMIA Status: Acute Current Visit: Yes Problem List Initiated/Reviewed/Updated: Yes Orders Last 24hrs: Medication Orders Sodium Chloride (Normal Saline) 1,000 mls @ 150 mls/hr IV ASDIRECTED [facility] Last Admin: 04/25/17 04:19 Dose: 150 mls/hr Sodium Chloride (Normal Saline) 100 mls @ 60 mls/hr IV ASDIRECTED [facility] Last Admin: 04/25/17 04:52 Dose: 60 mls/hr Assessment/Plan Comment:: Impression: Lightheadedness, unclear etiology Electrolyte abnormality-hyponatremia, hypovolemia Query diuretic induced. Formerly on thiazide diuretic S/P right shoulder arthroscopy High TSH noted Chronic COPD GERD CAD/[place] HLD HTN Anxiety/Depression Plan: Confirm Be level Review med list Infuse>12 hours isotonic saline Start thermotabs Check thyroid function studies Check random cortisol level DVT/GI prophylaxis SW/PT/OT
[2017-04-25] MEDS ORDERED: Nitroglycerin 0.4 MG Tab.SL SL PRN (11:03)
[2017-04-25] MEDS ORDERED: Ondansetron 4 MG/2 ML SDV IVPUSH PRN (11:10)
[2017-04-25] MEDS: Potassium Chloride/Sodium Chloride Tab PO SCH ×2 (13:15→21:06)
[2017-04-25] MEDS: Metoprolol Tartrate 25 MG Tab PO SCH (21:06)
[2017-04-25] MEDS: LORazepam 0.5 MG Tab PO PRN (21:06)
[2017-04-25] MEDS: Levothyroxine 50 MCG Tab PO SCH (21:06)
[2017-04-26] MEDS: Pantoprazole 40 MG Tab.CR PO SCH (06:48)
[2017-04-26] MEDS: Levothyroxine 50 MCG Tab PO SCH (06:48)
[2017-04-26] MEDS: Tamsulosin 0.4 MG Cap.ER PO SCH (08:54)
[2017-04-26] MEDS: Rosuvastatin 10 MG Tab PO SCH (08:54)
[2017-04-26] MEDS: Venlafaxine 37.5 MG Cap.ER PO SCH (08:54)
[2017-04-26] MEDS: Aspirin 81 MG Tab.EC PO SCH (08:54)
[2017-04-26] MEDS: Metoprolol Tartrate 25 MG Tab PO SCH ×2 (08:55→22:14)
[2017-04-26] MEDS: Potassium Chloride/Sodium Chloride Tab PO SCH ×2 (08:56→22:11)
[2017-04-26] MEDS: Multivitamins,Therapeutic Tab PO SCH (08:56)
[2017-04-26] MEDS: Finasteride 5 MG Tab PO SCH (08:56)
[2017-04-26] MEDS ORDERED: HCTZ PO SCH (09:00)
[2017-04-26] MEDS ORDERED: Aspirin 81 MG Tab.EC PO SCH (09:00)
[2017-04-26] MEDS ORDERED: [UNRECOGNIZED DRUG - OTHER] PO SCH (09:00)
[2017-04-26] MEDS ORDERED: METOPROLOL SUCCINATE PO SCH (09:00)
[2017-04-26] MEDS ORDERED: Magnesium Sulfate/Water 2 GM in Premix Bag 1 BAG IV ONE (10:34)
--- NOTE | 2017-04-26 11:41 | PCM.PN ---
- General Info Date of Service: 04/26/17 Functional Status: Reports: Pain Controlled, Tolerating Diet, Ambulating, Urinating - Review of Systems General: Reports: No Symptoms HEENT: Reports: No Symptoms Pulmonary: Reports: No Symptoms Cardiovascular: Reports: No Symptoms Gastrointestinal: Reports: No Symptoms Genitourinary: Reports: No Symptoms Musculoskeletal: Reports: No Symptoms Skin: Reports: No Symptoms Neurological: Reports: No Symptoms Psychiatric: Reports: No Symptoms - Patient Data Vitals - most recent: Last Vital Signs Temp 36.7 C 04/26/17 08:08 Pulse 60 04/26/17 08:55 Resp 12 04/26/17 08:08 BP 180/74 H 04/26/17 08:55 Pulse Ox 93 L 04/26/17 08:08 Weight - most recent: 63.73 kg I&O - last 24 hours: Intake & Output 04/25/17 04/26/17 04/26/17 22:59 06:59 14:59 Intake Total 2513 1050 Output Total 600 2350 Balance 1913 -1300 Lab Results last 24 hrs: Laboratory Results - last 24 hr 04/25/17 04/25/17 04/25/17 Range/Units 14:25 14:25 20:15 WBC (4.23-9.07) K/mm3 RBC (4.63-6.08) M/mm3 Hgb (13.7-17.5) gm/L Hct (40.1-51.0) % MCV (79.0-92.2) fl MCH (25.7-32.2) pg MCHC (32.2-35.5) g/dl RDW Std Deviation (35.1-43.9) fL Plt Count (163-337) K/mm3 MPV (9.4-12.3) fl Neut % (Auto) (34.0-67.9) % Lymph % (Auto) (21.8-53.1) % [place] % (Auto) (5.3-12.2) % Eos % (Auto) (0.8-7.0) Baso % (Auto) (0.1-1.2) % Neut # (Auto) (1.78-5.38) K/mm3 Lymph # (Auto) (1.32-3.57) K/mm3 [place] # (Auto) (0.30-0.82) K/mm3 Eos # (Auto) (0.04-0.54) K/mm3 Baso # (Auto) (0.01-0.08) K/mm3 Sodium (136-145) mEq/L Potassium (3.5-5.1) mEq/L Chloride (98-107) mEq/L Carbon Dioxide (21-32) mEq/L Anion Gap (5-15) BUN (7-18) mg/dL Creatinine (0.7-1.3) mg/dL Est Cr Clr Drug Dosing mL/min Estimated GFR (MDRD) (>60) mL/min BUN/Creatinine Ratio (14-18) Glucose (83-115) mg/dL Calcium (8.5-10.1) mg/dL Magnesium 1.9 (1.8-2.4) mg/dl Troponin I 0.023 (0.00-0.056) ng/mL B-Natriuretic Peptide 152 H (0-100) pg/mL Ur Random Sodium 44 (40-220) mEq/L 04/26/17 04/26/17 Range/Units 06:04 06:04 WBC 6.66 (4.23-9.07) K/mm3 RBC 4.32 L (4.63-6.08) M/mm3 Hgb 12.7 L (13.7-17.5) gm/L Hct 36.8 L (40.1-51.0) % MCV 85.2 (79.0-92.2) fl MCH 29.4 (25.7-32.2) pg MCHC 34.5 (32.2-35.5) g/dl RDW Std Deviation 39.6 (35.1-43.9) fL Plt Count 209 (163-337) K/mm3 MPV 10.2 (9.4-12.3) fl Neut % (Auto) 73.8 H (34.0-67.9) % Lymph % (Auto) 17.0 L (21.8-53.1) % [place] % (Auto) 7.1 (5.3-12.2) % Eos % (Auto) 1.7 (0.8-7.0) Baso % (Auto) 0.2 (0.1-1.2) % Neut # (Auto) 4.93 (1.78-5.38) K/mm3 Lymph # (Auto) 1.13 L (1.32-3.57) K/mm3 [place] # (Auto) 0.47 (0.30-0.82) K/mm3 Eos # (Auto) 0.11 (0.04-0.54) K/mm3 Baso # (Auto) 0.01 (0.01-0.08) K/mm3 Sodium 131 L (136-145) mEq/L Potassium 4.4 (3.5-5.1) mEq/L Chloride 99 (98-107) mEq/L Carbon Dioxide 24 (21-32) mEq/L Anion Gap 12.4 (5-15) BUN 8 (7-18) mg/dL Creatinine 0.9 (0.7-1.3) mg/dL Est Cr Clr Drug Dosing 60.35 mL/min Estimated GFR (MDRD) > 60 (>60) mL/min BUN/Creatinine Ratio 8.9 L (14-18) Glucose 89 (83-115) mg/dL Calcium 8.7 (8.5-10.1) mg/dL Magnesium (1.8-2.4) mg/dl Troponin I (0.00-0.056) ng/mL B-Natriuretic Peptide (0-100) pg/mL Ur Random Sodium (40-220) mEq/L Med Orders - Current: Current Medications Aspirin (Halfprin) 81 mg PO DAILY [facility] Last Admin: 04/26/17 08:54 Dose: 81 mg Finasteride (Proscar) 5 mg PO DAILY [facility] Last Admin: 04/26/17 08:56 Dose: 5 mg Magnesium Sulfate 2 gm/ Premix 50 mls @ 25 mls/hr IV ONETIME ONE Stop: 04/26/17 12:33 Sodium Chloride (Normal Saline) 1,000 mls @ 100 mls/hr IV ASDIRECTED [facility] Stop: 04/26/17 20:00 Levothyroxine Sodium (Synthroid) 50 mcg PO ACBREAKFAST [facility] Last Admin: 04/26/17 06:48 Dose: 50 mcg Lorazepam (Ativan) 0.5 mg PO QID PRN PRN Reason: Anxiety Last Admin: 04/25/17 21:06 Dose: 0.5 mg Metoprolol Tartrate (Lopressor) 25 mg PO BID [facility] Last Admin: 04/26/17 08:55 Dose: 25 mg Multivitamins (Thera) 1 each PO DAILY [facility] Last Admin: 04/26/17 08:56 Dose: 1 each Nitroglycerin (Nitrostat) 0.4 mg SL ASDIRECTED PRN PRN Reason: Chest Pain Ondansetron HCl (Zofran) 4 mg IVPUSH Q8H PRN PRN Reason: Nausea/Vomiting Oral Electrolytes (Thermotabs) 1 each PO BID [facility] Last Admin: 04/26/17 08:56 Dose: 1 each Pantoprazole Sodium (Protonix) 40 mg PO DAILY@0700 [facility] Last Admin: 04/26/17 06:48 Dose: 40 mg Rosuvastatin Calcium (Crestor) 20 mg PO DAILY [facility] Last Admin: 04/26/17 08:54 Dose: 20 mg Tamsulosin HCl (Flomax) 0.4 mg PO DAILY [facility] Last Admin: 04/26/17 08:54 Dose: 0.4 mg Venlafaxine HCl (Effexor Xr) 37.5 mg PO DAILY [facility] Last Admin: 04/26/17 08:54 Dose: 37.5 mg Discontinued Medications Aspirin (Halfprin) 81 mg PO DAILY [facility] Sodium Chloride (Normal Saline) 1,000 mls @ 150 mls/hr IV ASDIRECTED [facility] Last Admin: 04/25/17 13:15 Dose: 150 mls/hr Sodium Chloride (Normal Saline) 100 mls @ 60 mls/hr IV ASDIRECTED [facility] Last Admin: 04/25/17 04:52 Dose: 60 mls/hr Iopamidol (Isovue-370 (76%)) 100 ml IVPUSH ONETIME ONE Stop: 04/25/17 04:35 Last Admin: 04/25/17 04:52 Dose: 100 ml Non-Formulary Medication (Metoprolol Succinate/Hctz [Metoprolol Er-Hctz 100- 12.5 Mg]) 50 mg PO DAILY [facility] Sodium Chloride (Saline Flush) 10 ml FLUSH ONETIME ONE Stop: 04/25/17 04:35 Last Admin: 04/25/17 04:52 Dose: 10 ml - Exam Quality Assessment: DVT prophylaxis General: alert, oriented, cooperative, no acute distress HEENT: Pupils equal, Pupils reactive, EOMI, Mucous membr. moist/pink Neck: supple, trachea midline Lungs: Normal Respiratory Effort Cardiovascular: Regular Rate, Regular Rhythm GI/Abdominal Exam: Normal Bowel Sounds, Soft, Non-Tender, No Organomegaly, No Distention (Male) Exam: Deferred Back Exam: Normal Inspection Extremities: Normal Inspection, No Pedal Edema Skin: warm Wound/Incisions: dressing dry and intact (right shoulder) Neurological: no new focal deficit Psy/Mental Status: alert, normal affect, normal mood - Problem List & Annotations (1) CAD (coronary artery disease) SNOMED Code(s): 05818447 Code(s): I25.10 - ATHSCL HEART DISEASE OF [place] CORONARY ARTERY W/O ANG PCTRS Status: Acute Current Visit: Yes (2) Hypertension SNOMED Code(s): 94999164 Code(s): I10 - ESSENTIAL (PRIMARY) HYPERTENSION Status: Acute Current Visit: Yes (3) Hyperlipidemia SNOMED Code(s): 66209053 Code(s): E78.5 - HYPERLIPIDEMIA, UNSPECIFIED Status: Acute Current Visit : Yes (4) BPH (benign prostatic hyperplasia) SNOMED Code(s): 816567111, 516861185 Code(s): N40.0 - BENIGN PROSTATIC HYPERPLASIA WITHOUT LOWER URINRY TRACT SYMP Status: Acute Current Visit: Yes (5) COPD (chronic obstructive pulmonary disease) SNOMED Code(s): 80855339 Code(s): J44.9 - CHRONIC OBSTRUCTIVE PULMONARY DISEASE, UNSPECIFIED Status : Acute Current Visit: Yes (6) GERD (gastroesophageal reflux disease) SNOMED Code(s): 148019148 Code(s): K21.9 - GASTRO-ESOPHAGEAL REFLUX DISEASE WITHOUT ESOPHAGITIS Status: Acute Current Visit: Yes (7) Myocardial infarct, old SNOMED Code(s): 9432351 Code(s): I25.2 - OLD MYOCARDIAL INFARCTION Status: Acute Current Visit: Yes (8) GERD (gastroesophageal reflux disease) SNOMED Code(s): 073285578 Code(s): K21.9 - GASTRO-ESOPHAGEAL REFLUX DISEASE WITHOUT ESOPHAGITIS Status: Acute Current Visit: Yes (9) Anxiety SNOMED Code(s): 15420713 Code(s): F41.9 - ANXIETY DISORDER, UNSPECIFIED Status: Acute Current Visit: Yes (10) Depression SNOMED Code(s): 02264735 Code(s): F32.9 - MAJOR DEPRESSIVE DISORDER, SINGLE EPISODE, UNSPECIFIED Status: Acute Current Visit: Yes (11) Hyponatremia SNOMED Code(s): 74125961 Code(s): E87.1 - HYPO-OSMOLALITY AND HYPONATREMIA Status: Acute Current Visit: Yes - Problem List Review Problem List Initiated/Reviewed/Updated: Yes - My Orders Last 24 Hours: My Active Orders 04/25/17 11:03 LORazepam [Ativan] 0.5 mg PO QID PRN Nitroglycerin [Nitrostat] 0.4 mg SL ASDIRECTED PRN 04/25/17 11:10 Ondansetron [Zofran] 4 mg IVPUSH Q8H PRN 04/25/17 11:15 Potassium Chloride/NaCl [Thermotabs] 1 each PO BID 04/25/17 14:52 Code Status [Resuscitation Status] Routine 04/25/17 21:00 Levothyroxine [Synthroid] 50 mcg PO ACBREAKFAST Metoprolol Tartrate [Lopressor] 25 mg PO BID 04/25/17 22:40 Up ad [place] [RC] ASDIRECTED 04/26/17 07:00 Pantoprazole [ProTONIX] 40 mg PO DAILY@0700 04/26/17 09:00 Aspirin [Halfprin] 81 mg PO DAILY Finasteride [Proscar] 5 mg PO DAILY Multivitamins,Therapeutic [Thera] 1 each PO DAILY Rosuvastatin [Crestor] 20 mg PO DAILY Tamsulosin [Flomax] 0.4 mg PO DAILY Venlafaxine [Effexor XR] 37.5 mg PO DAILY 04/26/17 10:34 Magnesium Sulfate/Water [Magnesium Sulfate 2 GM in Water 50 ML] 2 gm Premix Bag 1 bag IV ONETIME 04/26/17 14:00 Sodium Chloride 0.9% [Normal Saline] 1,000 ml IV ASDIRECTED 04/26/17 Lunch Heart Healthy Diet [DIET] 04/27/17 05:00 BASIC METABOLIC PANEL,BMP [CHEM] DAILY CBC WITH AUTO DIFF [HEME] DAILY CORTISOL [REF] Routine LIPID PANEL [CHEM] Routine MAGNESIUM [CHEM] Routine T4 FREE [CHEM] Routine 04/28/17 05:00 BASIC METABOLIC PANEL,BMP [CHEM] DAILY CBC WITH AUTO DIFF [HEME] DAILY 04/29/17 05:00 BASIC METABOLIC PANEL,BMP [CHEM] DAILY CBC WITH AUTO DIFF [HEME] DAILY - Plan Plan:: Impression: Lightheadedness, resolved after hydration Electrolyte abnormality-hyponatremia, hypovolemia Query current diuretic use. Formerly on thiazide diuretic S/P right shoulder arthroscopy High TSH noted Chronic COPD GERD CAD/[place] HLD HTN Anxiety/Depression Plan: Review med list Infuse> 6 hours isotonic saline today while awake Continue thermotabs Check thyroid function studies Check random cortisol level DVT/GI prophylaxis SW/PT/OT
[2017-04-26] MEDS ORDERED: Sodium Chloride 0.9% 1,000 ML IV SCH (14:00)
[2017-04-26] MEDS: LORazepam 0.5 MG Tab PO PRN (22:12)
[2017-04-26] MEDS: hydrALAZINE 20 MG/ML SDV IVPUSH PRN (22:14)
[2017-04-27] MEDS: LORazepam 0.5 MG Tab PO PRN (03:35)
[2017-04-27] MEDS: Pantoprazole 40 MG Tab.CR PO SCH (06:23)
[2017-04-27] MEDS: Levothyroxine 50 MCG Tab PO SCH (06:23)
[2017-04-27] MEDS: Rosuvastatin 10 MG Tab PO SCH (08:25)
[2017-04-27] MEDS: Venlafaxine 37.5 MG Cap.ER PO SCH (08:26)
[2017-04-27] MEDS: Aspirin 81 MG Tab.EC PO SCH (08:26)
[2017-04-27] MEDS: Potassium Chloride/Sodium Chloride Tab PO SCH ×2 (08:26→20:45)
[2017-04-27] MEDS: Multivitamins,Therapeutic Tab PO SCH (08:26)
[2017-04-27] MEDS: Tamsulosin 0.4 MG Cap.ER PO SCH (08:26)
[2017-04-27] MEDS: Finasteride 5 MG Tab PO SCH (08:27)
[2017-04-27] MEDS: Metoprolol Tartrate 25 MG Tab PO SCH ×2 (08:27→20:45)
[2017-04-27] MEDS ORDERED: Sodium Chloride 3% 500 ML IV SCH (15:30)
--- NOTE | 2017-04-27 15:45 | PCM.PN ---
- General Info Date of Service: 04/27/17 Functional Status: Reports: Pain Controlled, Tolerating Diet, Ambulating - Review of Systems General: Reports: No Symptoms HEENT: Reports: No Symptoms Pulmonary: Reports: No Symptoms Cardiovascular: Reports: No Symptoms Gastrointestinal: Reports: No Symptoms Genitourinary: Reports: No Symptoms Musculoskeletal: Reports: No Symptoms Skin: Reports: No Symptoms Neurological: Reports: No Symptoms Psychiatric: Reports: No Symptoms - Patient Data Vitals - Most Recent: Last Vital Signs Temp 36.6 C 04/27/17 12:09 Pulse 58 L 04/27/17 12:09 Resp 14 04/27/17 12:09 BP 153/73 H 04/27/17 12:09 Pulse Ox 97 04/27/17 12:09 Weight - Most Recent: 62.732 kg I&O - Last 24 Hours: Intake & Output 04/27/17 04/27/17 04/27/17 06:59 14:59 22:59 Intake Total 1200 180 180 Output Total 1300 Balance -100 180 180 Lab Results Last 24 Hours: Laboratory Results - last 24 hr 04/27/17 04/27/17 Range/Units 05:40 05:40 WBC 9.10 H (4.23-9.07) K/mm3 RBC 4.37 L (4.63-6.08) M/mm3 Hgb 12.8 L (13.7-17.5) gm/L Hct 37.0 L (40.1-51.0) % MCV 84.7 (79.0-92.2) fl MCH 29.3 (25.7-32.2) pg MCHC 34.6 (32.2-35.5) g/dl RDW Std Deviation 39.8 (35.1-43.9) fL Plt Count 213 (163-337) K/mm3 MPV 10.4 (9.4-12.3) fl Neut % (Auto) 79.1 H (34.0-67.9) % Lymph % (Auto) 12.6 L (21.8-53.1) % [place] % (Auto) 7.4 (5.3-12.2) % Eos % (Auto) 0.7 L (0.8-7.0) Baso % (Auto) 0.1 (0.1-1.2) % Neut # (Auto) 7.20 H (1.78-5.38) K/mm3 Lymph # (Auto) 1.15 L (1.32-3.57) K/mm3 [place] # (Auto) 0.67 (0.30-0.82) K/mm3 Eos # (Auto) 0.06 (0.04-0.54) K/mm3 Baso # (Auto) 0.01 (0.01-0.08) K/mm3 Sodium 128 L (136-145) mEq/L Potassium 4.1 (3.5-5.1) mEq/L Chloride 95 L (98-107) mEq/L Carbon Dioxide 24 (21-32) mEq/L Anion Gap 13.1 (5-15) BUN 13 (7-18) mg/dL Creatinine 0.9 (0.7-1.3) mg/dL Est Cr Clr Drug Dosing 60.02 mL/min Estimated GFR (MDRD) > 60 (>60) mL/min BUN/Creatinine Ratio 14.4 (14-18) Glucose 100 (83-115) mg/dL Calcium 8.5 (8.5-10.1) mg/dL Magnesium 2.1 (1.8-2.4) mg/dl Triglycerides 91 (<150) mg/dL Cholesterol 98 (<200) mg/dL LDL Cholesterol Direct 43 (<100) mg/dL HDL Cholesterol 44.0 (40-59) mg/dL Free T4 1.47 H (0.76-1.46) ng/dL Med Orders - Current: Current Medications Aspirin (Halfprin) 81 mg PO DAILY [facility] Last Admin: 04/27/17 08:26 Dose: 81 mg Finasteride (Proscar) 5 mg PO DAILY [facility] Last Admin: 04/27/17 08:27 Dose: 5 mg Hydralazine HCl (Apresoline) 20 mg IVPUSH Q8H PRN PRN Reason: Hypertension Last Admin: 04/26/17 22:14 Dose: 20 mg Sodium Chloride (Sodium Chloride 3%) 500 mls @ 12 mls/hr IV ASDIRECTED [facility] Levothyroxine Sodium (Synthroid) 50 mcg PO ACBREAKFAST [facility] Last Admin: 04/27/17 06:23 Dose: 50 mcg Lorazepam (Ativan) 0.5 mg PO QID PRN PRN Reason: Anxiety Last Admin: 04/27/17 03:35 Dose: 0.5 mg Metoprolol Tartrate (Lopressor) 25 mg PO BID [facility] Last Admin: 04/27/17 08:27 Dose: 25 mg Multivitamins (Thera) 1 each PO DAILY [facility] Last Admin: 04/27/17 08:26 Dose: 1 each Nitroglycerin (Nitrostat) 0.4 mg SL ASDIRECTED PRN PRN Reason: Chest Pain Ondansetron HCl (Zofran) 4 mg IVPUSH Q8H PRN PRN Reason: Nausea/Vomiting Oral Electrolytes (Thermotabs) 1 each PO BID [facility] Last Admin: 04/27/17 08:26 Dose: 1 each Pantoprazole Sodium (Protonix) 40 mg PO DAILY@0700 [facility] Last Admin: 04/27/17 06:23 Dose: 40 mg Rosuvastatin Calcium (Crestor) 20 mg PO DAILY [facility] Last Admin: 04/27/17 08:25 Dose: 20 mg Tamsulosin HCl (Flomax) 0.4 mg PO DAILY [facility] Last Admin: 04/27/17 08:26 Dose: 0.4 mg Venlafaxine HCl (Effexor Xr) 37.5 mg PO DAILY [facility] Last Admin: 04/27/17 08:26 Dose: 37.5 mg Discontinued Medications Aspirin (Halfprin) 81 mg PO DAILY [facility] Sodium Chloride (Normal Saline) 1,000 mls @ 150 mls/hr IV ASDIRECTED [facility] Last Admin: 04/25/17 13:15 Dose: 150 mls/hr Sodium Chloride (Normal Saline) 100 mls @ 60 mls/hr IV ASDIRECTED [facility] Last Admin: 04/25/17 04:52 Dose: 60 mls/hr Magnesium Sulfate 2 gm/ Premix 50 mls @ 25 mls/hr IV ONETIME ONE Stop: 04/26/17 12:33 Last Admin: 04/26/17 12:23 Dose: 25 mls/hr Sodium Chloride (Normal Saline) 1,000 mls @ 100 mls/hr IV ASDIRECTED [facility] Stop: 04/26/17 20:00 Last Admin: 04/26/17 13:51 Dose: 100 mls/hr Iopamidol (Isovue-370 (76%)) 100 ml IVPUSH ONETIME ONE Stop: 04/25/17 04:35 Last Admin: 04/25/17 04:52 Dose: 100 ml Non-Formulary Medication (Metoprolol Succinate/Hctz [Metoprolol Er-Hctz 100- 12.5 Mg]) 50 mg PO DAILY [facility] Sodium Chloride (Saline Flush) 10 ml FLUSH ONETIME ONE Stop: 04/25/17 04:35 Last Admin: 04/25/17 04:52 Dose: 10 ml - Exam Quality Assessment: DVT Prophylaxis General: Alert, Oriented, Cooperative, No Acute Distress HEENT: Pupils Equal, Pupils Reactive, EOMI, Mucous Membr. Moist/[place] Neck: Supple, Trachea Midline Lungs: Normal Respiratory Effort Cardiovascular: Regular Rate, Regular Rhythm GI/Abdominal Exam: Normal Bowel Sounds, Soft, Non-Tender, No Organomegaly, No Distention (Male) Exam: Deferred Back Exam: Normal Inspection Extremities: Normal Inspection Skin: Warm Neurological: No New Focal Deficit, Normal Gait, Normal Speech Psy/Mental Status: Alert, Normal Affect, Normal Mood - Problem List & Annotations (1) CAD (coronary artery disease) SNOMED Code(s): 95750310 Code(s): I25.10 - ATHSCL HEART DISEASE OF [place] CORONARY ARTERY W/O ANG PCTRS Status: Acute Current Visit: Yes (2) Hypertension SNOMED Code(s): 62342465 Code(s): I10 - ESSENTIAL (PRIMARY) HYPERTENSION Status: Acute Current Visit: Yes (3) Hyperlipidemia SNOMED Code(s): 98789444 Code(s): E78.5 - HYPERLIPIDEMIA, UNSPECIFIED Status: Acute Current Visit : Yes (4) BPH (benign prostatic hyperplasia) SNOMED Code(s): 535721683, 859996451 Code(s): N40.0 - BENIGN PROSTATIC HYPERPLASIA WITHOUT LOWER URINRY TRACT SYMP Status: Acute Current Visit: Yes (5) COPD (chronic obstructive pulmonary disease) SNOMED Code(s): 33379204 Code(s): J44.9 - CHRONIC OBSTRUCTIVE PULMONARY DISEASE, UNSPECIFIED Status : Acute Current Visit: Yes (6) GERD (gastroesophageal reflux disease) SNOMED Code(s): 834178084 Code(s): K21.9 - GASTRO-ESOPHAGEAL REFLUX DISEASE WITHOUT ESOPHAGITIS Status: Acute Current Visit: Yes (7) Myocardial infarct, old SNOMED Code(s): 4015635 Code(s): I25.2 - OLD MYOCARDIAL INFARCTION Status: Acute Current Visit: Yes (8) GERD (gastroesophageal reflux disease) SNOMED Code(s): 853733325 Code(s): K21.9 - GASTRO-ESOPHAGEAL REFLUX DISEASE WITHOUT ESOPHAGITIS Status: Acute Current Visit: Yes (9) Anxiety SNOMED Code(s): 17465816 Code(s): F41.9 - ANXIETY DISORDER, UNSPECIFIED Status: Acute Current Visit: Yes (10) Depression SNOMED Code(s): 86959604 Code(s): F32.9 - MAJOR DEPRESSIVE DISORDER, SINGLE EPISODE, UNSPECIFIED Status: Acute Current Visit: Yes (11) Hyponatremia SNOMED Code(s): 51126802 Code(s): E87.1 - HYPO-OSMOLALITY AND HYPONATREMIA Status: Acute Current Visit: Yes - Problem List Review Problem List Initiated/Reviewed/Updated: Yes - My Orders Last 24 Hours: My Active Orders 04/26/17 20:23 hydrALAZINE [Apresoline] 20 mg IVPUSH Q8H PRN 04/27/17 05:40 CORTISOL [REF] Routine 04/27/17 15:30 Sodium Chloride 3% 500 ml IV ASDIRECTED 04/28/17 05:00 BASIC METABOLIC PANEL,BMP [CHEM] DAILY CBC WITH AUTO DIFF [HEME] DAILY 04/29/17 05:00 BASIC METABOLIC PANEL,BMP [CHEM] DAILY CBC WITH AUTO DIFF [HEME] DAILY - Plan Plan:: Impression: Lightheadedness, resolved after hydration Electrolyte abnormality-hyponatremia, hypovolemia Query current diuretic use. Formerly on thiazide diuretic S/P right shoulder arthroscopy High TSH noted Chronic COPD GERD CAD/[place] HLD HTN Anxiety/Depression Plan: Infuse hypertonic saline today Continue thermotabs Check thyroid function studies Check random cortisol level Ortho walk in appt per Beatriz at [facility] on 04/28/17. DVT/GI prophylaxis SW/PT/OT
[2017-04-28] MEDS: Levothyroxine 50 MCG Tab PO SCH (06:18)
[2017-04-28] MEDS: Pantoprazole 40 MG Tab.CR PO SCH (06:18)
[2017-04-28] MEDS: Multivitamins,Therapeutic Tab PO SCH (09:38)
[2017-04-28] MEDS: Potassium Chloride/Sodium Chloride Tab PO SCH ×4 (09:38→20:43)
[2017-04-28] MEDS: Finasteride 5 MG Tab PO SCH (09:39)
[2017-04-28] MEDS: Tamsulosin 0.4 MG Cap.ER PO SCH (09:40)
[2017-04-28] MEDS: Aspirin 81 MG Tab.EC PO SCH (09:40)
[2017-04-28] MEDS: Metoprolol Tartrate 25 MG Tab PO SCH ×2 (09:40→20:43)
[2017-04-28] MEDS: Rosuvastatin 10 MG Tab PO SCH (09:40)
[2017-04-28] MEDS: Venlafaxine 37.5 MG Cap.ER PO SCH (09:40)
--- NOTE | 2017-04-28 13:21 | PCM.PN ---
- General Info Date of Service: 04/28/17 - Patient Data Vitals - Most Recent: Last Vital Signs Temp 36.9 C 04/28/17 11:59 Pulse 54 L 04/28/17 11:59 Resp 14 04/28/17 11:59 BP 140/76 04/28/17 11:59 Pulse Ox 95 04/28/17 11:59 Weight - Most Recent: 62.596 kg I&O - Last 24 Hours: Intake & Output 04/27/17 04/28/17 04/28/17 22:59 06:59 14:59 Intake Total 972 720 240 Output Total 7 800 Balance 965 -80 240 Lab Results Last 24 Hours: Laboratory Results - last 24 hr 04/27/17 04/28/17 04/28/17 Range/Units 05:40 05:28 05:28 WBC 7.55 (4.23-9.07) K/mm3 RBC 4.07 L (4.63-6.08) M/mm3 Hgb 12.1 L (13.7-17.5) gm/L Hct 34.7 L (40.1-51.0) % MCV 85.3 (79.0-92.2) fl MCH 29.7 (25.7-32.2) pg MCHC 34.9 (32.2-35.5) g/dl RDW Std Deviation 39.7 (35.1-43.9) fL Plt Count 191 (163-337) K/mm3 MPV 10.4 (9.4-12.3) fl Neut % (Auto) 75.6 H (34.0-67.9) % Lymph % (Auto) 15.1 L (21.8-53.1) % [place] % (Auto) 7.7 (5.3-12.2) % Eos % (Auto) 1.2 (0.8-7.0) Baso % (Auto) 0.1 (0.1-1.2) % Neut # (Auto) 5.71 H (1.78-5.38) K/mm3 Lymph # (Auto) 1.14 L (1.32-3.57) K/mm3 [place] # (Auto) 0.58 (0.30-0.82) K/mm3 Eos # (Auto) 0.09 (0.04-0.54) K/mm3 Baso # (Auto) 0.01 (0.01-0.08) K/mm3 Sodium 128 L (136-145) mEq/L Potassium 4.1 (3.5-5.1) mEq/L Chloride 95 L (98-107) mEq/L Carbon Dioxide 23 (21-32) mEq/L Anion Gap 14.1 (5-15) BUN 12 (7-18) mg/dL Creatinine 0.9 (0.7-1.3) mg/dL Est Cr Clr Drug Dosing 59.89 mL/min Estimated GFR (MDRD) > 60 (>60) mL/min BUN/Creatinine Ratio 13.3 L (14-18) Glucose 92 (83-115) mg/dL Calcium 8.5 (8.5-10.1) mg/dL Cortisol 13.4 ug/dL Med Orders - Current: Current Medications Aspirin (Halfprin) 81 mg PO DAILY [facility] Last Admin: 04/28/17 09:40 Dose: 81 mg Finasteride (Proscar) 5 mg PO DAILY [facility] Last Admin: 04/28/17 09:39 Dose: 5 mg Hydralazine HCl (Apresoline) 20 mg IVPUSH Q8H PRN PRN Reason: Hypertension Last Admin: 04/26/17 22:14 Dose: 20 mg Sodium Chloride (Sodium Chloride 3%) 500 mls @ 12 mls/hr IV ASDIRECTED [facility] Last Admin: 04/27/17 16:47 Dose: 12 mls/hr Levothyroxine Sodium (Synthroid) 50 mcg PO ACBREAKFAST [facility] Last Admin: 04/28/17 06:18 Dose: 50 mcg Lorazepam (Ativan) 0.5 mg PO QID PRN PRN Reason: Anxiety Last Admin: 04/27/17 03:35 Dose: 0.5 mg Metoprolol Tartrate (Lopressor) 25 mg PO BID [facility] Last Admin: 04/28/17 09:40 Dose: 25 mg Multivitamins (Thera) 1 each PO DAILY [facility] Last Admin: 04/28/17 09:38 Dose: 1 each Nitroglycerin (Nitrostat) 0.4 mg SL ASDIRECTED PRN PRN Reason: Chest Pain Ondansetron HCl (Zofran) 4 mg IVPUSH Q8H PRN PRN Reason: Nausea/Vomiting Oral Electrolytes (Thermotabs) 1 each PO QID [facility] Pantoprazole Sodium (Protonix) 40 mg PO DAILY@0700 [facility] Last Admin: 04/28/17 06:18 Dose: 40 mg Rosuvastatin Calcium (Crestor) 20 mg PO DAILY [facility] Last Admin: 04/28/17 09:40 Dose: 20 mg Tamsulosin HCl (Flomax) 0.4 mg PO DAILY [facility] Last Admin: 04/28/17 09:40 Dose: 0.4 mg Venlafaxine HCl (Effexor Xr) 37.5 mg PO DAILY [facility] Last Admin: 04/28/17 09:40 Dose: 37.5 mg Discontinued Medications Aspirin (Halfprin) 81 mg PO DAILY [facility] Sodium Chloride (Normal Saline) 1,000 mls @ 150 mls/hr IV ASDIRECTED [facility] Last Admin: 04/25/17 13:15 Dose: 150 mls/hr Sodium Chloride (Normal Saline) 100 mls @ 60 mls/hr IV ASDIRECTED [facility] Last Admin: 04/25/17 04:52 Dose: 60 mls/hr Magnesium Sulfate 2 gm/ Premix 50 mls @ 25 mls/hr IV ONETIME ONE Stop: 04/26/17 12:33 Last Admin: 04/26/17 12:23 Dose: 25 mls/hr Sodium Chloride (Normal Saline) 1,000 mls @ 100 mls/hr IV ASDIRECTED [facility] Stop: 04/26/17 20:00 Last Admin: 04/26/17 13:51 Dose: 100 mls/hr Iopamidol (Isovue-370 (76%)) 100 ml IVPUSH ONETIME ONE Stop: 04/25/17 04:35 Last Admin: 04/25/17 04:52 Dose: 100 ml Non-Formulary Medication (Metoprolol Succinate/Hctz [Metoprolol Er-Hctz 100- 12.5 Mg]) 50 mg PO DAILY [facility] Oral Electrolytes (Thermotabs) 1 each PO BID [facility] Last Admin: 04/28/17 09:38 Dose: 1 each Sodium Chloride (Saline Flush) 10 ml FLUSH ONETIME ONE Stop: 04/25/17 04:35 Last Admin: 04/25/17 04:52 Dose: 10 ml - Problem List & Annotations (1) CAD (coronary artery disease) SNOMED Code(s): 46836790 Code(s): I25.10 - ATHSCL HEART DISEASE OF [place] CORONARY ARTERY W/O ANG PCTRS Status: Acute Current Visit: Yes (2) Hypertension SNOMED Code(s): 46794656 Code(s): I10 - ESSENTIAL (PRIMARY) HYPERTENSION Status: Acute Current Visit: Yes (3) Hyperlipidemia SNOMED Code(s): 98634433 Code(s): E78.5 - HYPERLIPIDEMIA, UNSPECIFIED Status: Acute Current Visit : Yes (4) BPH (benign prostatic hyperplasia) SNOMED Code(s): 043433174, 633296235 Code(s): N40.0 - BENIGN PROSTATIC HYPERPLASIA WITHOUT LOWER URINRY TRACT SYMP Status: Acute Current Visit: Yes (5) COPD (chronic obstructive pulmonary disease) SNOMED Code(s): 88552959 Code(s): J44.9 - CHRONIC OBSTRUCTIVE PULMONARY DISEASE, UNSPECIFIED Status : Acute Current Visit: Yes (6) GERD (gastroesophageal reflux disease) SNOMED Code(s): 231260404 Code(s): K21.9 - GASTRO-ESOPHAGEAL REFLUX DISEASE WITHOUT ESOPHAGITIS Status: Acute Current Visit: Yes (7) Myocardial infarct, old SNOMED Code(s): 4870726 Code(s): I25.2 - OLD MYOCARDIAL INFARCTION Status: Acute Current Visit: Yes (8) GERD (gastroesophageal reflux disease) SNOMED Code(s): 356961402 Code(s): K21.9 - GASTRO-ESOPHAGEAL REFLUX DISEASE WITHOUT ESOPHAGITIS Status: Acute Current Visit: Yes (9) Anxiety SNOMED Code(s): 09864622 Code(s): F41.9 - ANXIETY DISORDER, UNSPECIFIED Status: Acute Current Visit: Yes (10) Depression SNOMED Code(s): 44434576 Code(s): F32.9 - MAJOR DEPRESSIVE DISORDER, SINGLE EPISODE, UNSPECIFIED Status: Acute Current Visit: Yes (11) Hyponatremia SNOMED Code(s): 44204788 Code(s): E87.1 - HYPO-OSMOLALITY AND HYPONATREMIA Status: Acute Current Visit: Yes - Problem List Review Problem List Initiated/Reviewed/Updated: Yes - My Orders Last 24 Hours: My Active Orders 04/27/17 15:30 Sodium Chloride 3% 500 ml IV ASDIRECTED 04/27/17 20:30 PT Evaluation and Treatment [CONS] Routine 04/28/17 12:05 Consult to Speech Language Pathology [RN OBSERVATION Evaluation and Treatment] [CONS] Routine 04/28/17 13:00 Potassium Chloride/NaCl [Thermotabs] 1 each PO QID 04/29/17 05:00 BASIC METABOLIC PANEL,BMP [CHEM] DAILY CBC WITH AUTO DIFF [HEME] DAILY - Plan Plan:: Impression: Lightheadedness, resolved after hydration Electrolyte abnormality-hyponatremia, hypovolemia Query current diuretic use. Formerly on thiazide diuretic S/P right shoulder arthroscopy High TSH noted Chronic COPD GERD CAD/[place] HLD HTN Anxiety/Depression Plan: Infuse hypertonic saline today Continue thermotabs Check thyroid function studies Check random cortisol level Ortho walk in appt per Beatriz at [facility] on 04/28/17. DVT/GI prophylaxis SW/PT/OT
[2017-04-28] MEDS: hydrALAZINE 20 MG/ML SDV IVPUSH PRN (17:04)
[2017-04-28] MEDS: LORazepam 0.5 MG Tab PO PRN (20:44)
[2017-04-29] MEDS: Levothyroxine 50 MCG Tab PO SCH (06:22)
[2017-04-29] MEDS: Pantoprazole 40 MG Tab.CR PO SCH (06:23)
[2017-04-29 07:51] VITALS: BP 155/89
[2017-04-29] MEDS: Multivitamins,Therapeutic Tab PO SCH (09:37)
[2017-04-29] MEDS: Aspirin 81 MG Tab.EC PO SCH (09:37)
[2017-04-29] MEDS: Potassium Chloride/Sodium Chloride Tab PO SCH ×2 (09:37→13:38)
[2017-04-29] MEDS: Tamsulosin 0.4 MG Cap.ER PO SCH (09:37)
[2017-04-29] MEDS: Rosuvastatin 10 MG Tab PO SCH (09:37)
[2017-04-29] MEDS: Finasteride 5 MG Tab PO SCH (09:37)
[2017-04-29] MEDS: Venlafaxine 37.5 MG Cap.ER PO SCH (09:37)
[2017-04-29] MEDS: Metoprolol Tartrate 25 MG Tab PO SCH (09:38)
--- NOTE | 2017-04-29 10:07 | PCM.DCSUM1 ---
Discharge Summary - Hospital Course Free Text/Narrative:: 76 year old male who reports feeling lightheaded for several weeks. He has recently had a right shoulder procedure in late March 2017. Associated with the lightheadedness has been SOB. He denies any fever or chills; he has had nausea with vomiting that occurred on the day of admission. The pain medication prescribed by Dr Richmond made him nauseated, he took it roughly two times with the same result. Recently he has had some medication changes which may have included the stopping of HCTZ. Additionally he has had an antidepressant started by his PCP. Labs taken by ED document hyponatremia, a comparison will be made with his lab studies taken at the time of his shoulder procedure, if performed. Hospitalist service is consulted for admission for hyponatremia and hypovolemia. Patient was admitted, initially hydrated with 0.9% NS IV, then switched to hypertonic saline infusion along with starting thermotabs PO. Sodium levels slowly responded and corrected to the point where he could be discharged. He worked with PT/OT for continued rehab with his shoulder. He will see Dr. Richmond in follow up as scheduled and will follow up with his PCP the week following discharge with repeat BMP to be done at that time. - Discharge Data Discharge Date: 04/29/17 (admit date 04/25/17) Discharge Disposition: Home, Self-Care 01 Condition: Good - Discharge Diagnosis/Problem(s) (1) Hyponatremia SNOMED Code(s): 57823578 ICD Code: E87.1 - HYPO-OSMOLALITY AND HYPONATREMIA Status: Acute Priority : High - Patient Summary/Data Operative Procedure(s) Performed: None Complications: None Consults: Consultations 04/27/17 20:30 PT Evaluation and Treatment [CONS] Routine 04/28/17 12:05 Consult to Speech Language Pathology [HONING MACHINE OPERATOR SEMIAUTOMATIC Evaluation and Treatment] [CONS] Routine Labs Pending at D/C: None Recommended Follow-up Testing/Procedures: Follow up with PCP early next week, following discharge, with lab work prior, BMP. Follow up with Dr. Richmond for recheck of shoulder as scheduled Planned Operative Procedure(s) after DC: None Hospital Course: As above - Patient Instructions Diet: Usual Diet as Tolerated Activity: As Tolerated (with restrictions per PT with arm sling s/p shoulder surgery) Showering/Bathing: May Shower Notify Provider of: Fever, Increased Pain, Nausea and/or Vomiting - Discharge Plan Prescriptions/Med Rec: Levothyroxine [Synthroid] 50 mcg PO ACBREAKFAST #30 tablet Potassium Chloride/NaCl [Thermotabs] 1 each PO TID #21 tablet Home Medications: Home Meds Albuterol [IJD: Albuterol HFA] 2 puff INH Q4HR PRN 04/01/17 [History] Dutasteride [Avodart] 0.5 mg PO DAILY 04/01/17 [History] Multivitamin [Multivitamins] 1 cap PO DAILY 04/01/17 [History] Nitroglycerin [Nitrostat] 0.4 mg SL ASDIRECTED PRN 04/01/17 [History] Omeprazole Magnesium [Prilosec Otc] 20 mg PO DAILY 04/01/17 [History] Rosuvastatin Calcium [Crestor] 20 mg PO DAILY 04/01/17 [History] Tamsulosin [Flomax] 0.4 mg PO DAILY 04/01/17 [History] Aspirin [Ecotrin] 81 mg PO DAILY 04/25/17 [History] LORazepam [Ativan] 0.5 mg PO QID PRN 04/25/17 [History] Metoprolol Tartrate [Lopressor] 50 mg PO DAILY 04/25/17 [History] Venlafaxine [Effexor XR] 37.5 mg PO DAILY 04/25/17 [History] Levothyroxine [Synthroid] 50 mcg PO ACBREAKFAST #30 tablet 04/29/17 [Rx] Potassium Chloride/NaCl [Thermotabs] 1 each PO TID #21 tablet 04/29/17 [Rx] Patient Handouts: Hyponatremia, [id number] Referrals: Ricki Richmond MD [Physician] - 05/19/17 8:15 am (Please follow up with Dr. Richmond at the listed date and time. ) Luis Ceja MD [Primary Care Provider] - 06/04/17 1:00 pm (Previous appointment already made with Dr. Ceja. Follow-up chest CT should be done within one year.) - Discharge Summary/Plan Comment DC Time >30 min.: Yes (30 min) - General Info Date of Service: 05/04/17 Admission Dx/Problem (Free Text: Admission Diagnosis/Problem Admission Diagnosis/Problem Hyponatremia Doing much better. Anxious for DC home. Functional Status: Reports: Pain Controlled, Tolerating Diet, Ambulating, Urinating. Denies: New Symptoms - Review of Systems General: Reports: No Symptoms HEENT: Reports: No Symptoms Pulmonary: Reports: No Symptoms Cardiovascular: Reports: No Symptoms Gastrointestinal: Reports: No Symptoms Genitourinary: Reports: No Symptoms Musculoskeletal: Reports: Shoulder Pain Skin: Reports: No Symptoms Neurological: Reports: No Symptoms. Denies: Confusion, Dizziness, Headache Psychiatric: Reports: No Symptoms - Patient Data Vitals - Most Recent: Last Vital Signs Temp 99.7 F 04/29/17 07:49 Pulse 65 04/29/17 09:38 Resp 14 04/29/17 07:49 BP 155/89 H 04/29/17 09:38 Pulse Ox 95 04/29/17 07:49 Weight - Most Recent: 138 lb 14.4 oz I&O - Last 24 hours: Intake & Output 04/28/17 04/29/17 04/29/17 22:59 06:59 14:59 Intake Total 1543 498 Output Total 1250 700 Balance 293 -202 Lab Results - Last 24 hrs: Laboratory Results - last 24 hr 04/28/17 04/29/17 04/29/17 Range/Units 18:14 05:50 05:50 WBC 8.68 (4.23-9.07) K/mm3 RBC 4.26 L (4.63-6.08) M/mm3 Hgb 12.2 L (13.7-17.5) gm/L Hct 36.3 L (40.1-51.0) % MCV 85.2 (79.0-92.2) fl MCH 28.6 (25.7-32.2) pg MCHC 33.6 (32.2-35.5) g/dl RDW Std Deviation 40.5 (35.1-43.9) fL Plt Count 203 (163-337) K/mm3 MPV 10.3 (9.4-12.3) fl Neut % (Auto) 73.0 H (34.0-67.9) % Lymph % (Auto) 16.8 L (21.8-53.1) % [place] % (Auto) 8.5 (5.3-12.2) % Eos % (Auto) 1.4 (0.8-7.0) Baso % (Auto) 0.2 (0.1-1.2) % Neut # (Auto) 6.33 H (1.78-5.38) K/mm3 Lymph # (Auto) 1.46 (1.32-3.57) K/mm3 [place] # (Auto) 0.74 (0.30-0.82) K/mm3 Eos # (Auto) 0.12 (0.04-0.54) K/mm3 Baso # (Auto) 0.02 (0.01-0.08) K/mm3 Sodium 129 L 131 L (136-145) mEq/L Potassium 4.5 (3.5-5.1) mEq/L Chloride 98 (98-107) mEq/L Carbon Dioxide 25 (21-32) mEq/L Anion Gap 12.5 (5-15) BUN 14 (7-18) mg/dL Creatinine 0.9 (0.7-1.3) mg/dL Est Cr Clr Drug Dosing 60.28 mL/min Estimated GFR (MDRD) > 60 (>60) mL/min BUN/Creatinine Ratio 15.6 (14-18) Glucose 99 (83-115) mg/dL Calcium 8.6 (8.5-10.1) mg/dL Med Orders - Current: Current Medications Aspirin (Halfprin) 81 mg PO DAILY [facility] Last Admin: 04/29/17 09:37 Dose: 81 mg Finasteride (Proscar) 5 mg PO DAILY [facility] Last Admin: 04/29/17 09:37 Dose: 5 mg Hydralazine HCl (Apresoline) 20 mg IVPUSH Q8H PRN PRN Reason: Hypertension Last Admin: 04/28/17 17:04 Dose: 20 mg Sodium Chloride (Sodium Chloride 3%) 500 mls @ 12 mls/hr IV ASDIRECTED [facility] Last Admin: 04/27/17 16:47 Dose: 12 mls/hr Levothyroxine Sodium (Synthroid) 50 mcg PO ACBREAKFAST [facility] Last Admin: 04/29/17 06:22 Dose: 50 mcg Lorazepam (Ativan) 0.5 mg PO QID PRN PRN Reason: Anxiety Last Admin: 04/28/17 20:44 Dose: 0.5 mg Metoprolol Tartrate (Lopressor) 25 mg PO BID [facility] Last Admin: 04/29/17 09:38 Dose: 25 mg Multivitamins (Thera) 1 each PO DAILY [facility] Last Admin: 04/29/17 09:37 Dose: 1 each Nitroglycerin (Nitrostat) 0.4 mg SL ASDIRECTED PRN PRN Reason: Chest Pain Ondansetron HCl (Zofran) 4 mg IVPUSH Q8H PRN PRN Reason: Nausea/Vomiting Oral Electrolytes (Thermotabs) 1 each PO QID [facility] Last Admin: 04/29/17 09:37 Dose: 1 each Pantoprazole Sodium (Protonix) 40 mg PO DAILY@0700 [facility] Last Admin: 04/29/17 06:23 Dose: 40 mg Rosuvastatin Calcium (Crestor) 20 mg PO DAILY [facility] Last Admin: 04/29/17 09:37 Dose: 20 mg Tamsulosin HCl (Flomax) 0.4 mg PO DAILY [facility] Last Admin: 04/29/17 09:37 Dose: 0.4 mg Venlafaxine HCl (Effexor Xr) 37.5 mg PO DAILY [facility] Last Admin: 04/29/17 09:37 Dose: 37.5 mg Discontinued Medications Aspirin (Halfprin) 81 mg PO DAILY [facility] Sodium Chloride (Normal Saline) 1,000 mls @ 150 mls/hr IV ASDIRECTED [facility] Last Admin: 04/25/17 13:15 Dose: 150 mls/hr Sodium Chloride (Normal Saline) 100 mls @ 60 mls/hr IV ASDIRECTED [facility] Last Admin: 04/25/17 04:52 Dose: 60 mls/hr Magnesium Sulfate 2 gm/ Premix 50 mls @ 25 mls/hr IV ONETIME ONE Stop: 04/26/17 12:33 Last Admin: 04/26/17 12:23 Dose: 25 mls/hr Sodium Chloride (Normal Saline) 1,000 mls @ 100 mls/hr IV ASDIRECTED [facility] Stop: 04/26/17 20:00 Last Admin: 04/26/17 13:51 Dose: 100 mls/hr Iopamidol (Isovue-370 (76%)) 100 ml IVPUSH ONETIME ONE Stop: 04/25/17 04:35 Last Admin: 04/25/17 04:52 Dose: 100 ml Non-Formulary Medication (Metoprolol Succinate/Hctz [Metoprolol Er-Hctz 100- 12.5 Mg]) 50 mg PO DAILY GABY Oral Electrolytes (Thermotabs) 1 each PO BID GABY Last Admin: 04/28/17 09:38 Dose: 1 each Sodium Chloride (Saline Flush) 10 ml FLUSH ONETIME ONE Stop: 04/25/17 04:35 Last Admin: 04/25/17 04:52 Dose: 10 ml - Exam Quality Assessment: Reports: DVT Prophylaxis General: Reports: Alert, Oriented, Cooperative, No Acute Distress HEENT: Reports: Pupils Equal, Pupils Reactive, EOMI, Mucous Membr. Moist/[place] Neck: Reports: Supple Lungs: Reports: Clear to Auscultation, Normal Respiratory Effort Cardiovascular: Reports: Regular Rate, Regular Rhythm GI/Abdominal Exam: Normal Bowel Sounds, Soft, Distended (Male) Exam: Deferred Rectal (Males) Exam: Deferred Extremities: Other (shoulder brace/postop brace present) Neurological: Reports: No New Focal Deficit Psy/Mental Status: Reports: Alert, Normal Affect, Normal Mood *Q Meaningful Use (DIS) - VTE *Q VTE Criteria *Q: - Stroke *Q Stroke Criteria *Q: - AMI *Q AMI Criteria *Q:
== END 2017-04-29 13:54 | disposition home or self-care (01) | DRG 641 ==
LOC: JD.ED 01:09 → JD.MS 06:50
PROVIDERS: ADMIT Internal Medicine Cardiovascular Disease; ATTEND Internal Medicine Cardiovascular Disease
DX: E87.1 Hypo-osmolality and hyponatremia (principal); R79.1 Abnormal coagulation profile; E86.1 Hypovolemia; R42 Dizziness and giddiness; Z95.5 Presence of coronary angioplasty implant and graft; R94.6 Abnormal results of thyroid function studies; I25.10 Atherosclerotic heart disease of native coronary artery without angina pectoris; E78.00 Pure hypercholesterolemia, unspecified; I10 Essential (primary) hypertension; E78.5 Hyperlipidemia, unspecified; N40.0 Benign prostatic hyperplasia without lower urinary tract symptoms; J44.9 Chronic obstructive pulmonary disease, unspecified; K21.9 Gastro-esophageal reflux disease without esophagitis; I25.2 Old myocardial infarction; Z87.891 Personal history of nicotine dependence; F32.9 Major depressive disorder, single episode, unspecified; F41.9 Anxiety disorder, unspecified; H35.30 Unspecified macular degeneration; D64.9 Anemia, unspecified; Z88.6 Allergy status to analgesic agent; Z79.82 Long term (current) use of aspirin; Z79.899 Other long term (current) drug therapy
CPT/HCPCS: 36415; 36600; 71020; 71275; 80053; 81001; 82803; 83735; 83880; 83930; 83935; 84300; 84443; 84484; 84550; 85025; 85379; 85610; 85730; 93005; 96360; 96361; 99285; J7030; J7040; J7050; Q9967; 80048; 80061; 82533; 84295; 84439; 96125-GN; 97161-GP; 97532-GN; 99284; A9270-GY; J0360; J3475

== ENCOUNTER 2021-02-26 16:12 | Emergency (ER) | payer MEDICARE ==
[2021-02-26] MEDS ORDERED: Diphtheria,Pertussis(Acell),Tetanus Vaccine 0.5 ML Syringe IM ONE (16:48)
--- NOTE | 2021-02-26 16:48 | EDM.PDOC ---
ED HPI GENERAL MEDICAL PROBLEM - General Chief Complaint: Head Injury Stated Complaint: [facility] Time Seen by Provider: 02/26/21 16:39 - History of Present Illness INITIAL COMMENTS - FREE TEXT/NARRATIVE: 80-year-old male brought in by EMS after falling and injuring his head. Patient was walking around the [facility] center and had an unwitnessed fall he was walking behind his . The believes he probably stumbled as earlier today he almost fell after stumbling on a small pinecone. Patient has some dementia and was recently diagnosed with Alzheimer's. He is perhaps a little more confused than normal according to the . The patient denies any other injuries associated with the most unfortunate event however they thought that maybe at one point he had some blood draining from his nose. They are uncertain of his last tetanus shot. - Related Data Allergies Allergy/AdvReac Type Severity Reaction Status Date / Time No Known Allergies Allergy Verified 02/26/21 16:35 Home Meds: Home Meds Albuterol [IJD: Albuterol HFA] 2 puff INH Q4HR PRN 04/01/17 [History] Dutasteride [Avodart] 0.5 mg PO DAILY 04/01/17 [History] Multivitamin [Multivitamins] 1 cap PO DAILY 04/01/17 [History] Nitroglycerin [Nitrostat] 0.4 mg SL ASDIRECTED PRN 04/01/17 [History] Omeprazole Magnesium [Prilosec Otc] 20 mg PO DAILY 04/01/17 [History] Rosuvastatin Calcium [Crestor] 20 mg PO DAILY 04/01/17 [History] Tamsulosin [Flomax] 0.4 mg PO DAILY 04/01/17 [History] Aspirin [Ecotrin EC] 81 mg PO DAILY 04/25/17 [History] LORazepam [Ativan] 0.5 mg PO QID PRN 04/25/17 [History] Metoprolol Tartrate [Lopressor] 50 mg PO DAILY 04/25/17 [History] Venlafaxine [Effexor XR] 37.5 mg PO DAILY 04/25/17 [History] Levothyroxine [Synthroid] 50 mcg PO ACBREAKFAST #30 tablet 04/29/17 [Rx] Sodium Chloride/KCl [Thermotabs] 1 each PO TID #21 tablet 04/29/17 [Rx] Past Medical History HEENT History: Reports: Macular Degeneration Other HEENT History: impacted cerumen, hearing aids, dentures Cardiovascular History: Reports: CAD, High Cholesterol, Hypertension, ID Other Cardiovascular History: hyperlipedimia Respiratory History: Reports: COPD Gastrointestinal History: Reports: GERD Genitourinary History: Reports: BPH Other Musculoskeletal History: shoulder pain Neurological History: Reports: CVA, Other (See Below) Other Neuro History: lightheadedness Psychiatric History: Reports: Anxiety, Depression Other Psychiatric History: insomnia Hematologic History: Reports: Anemia - Past Surgical History HEENT Surgical History: Reports: Cataract Surgery Cardiovascular Surgical History: Reports: Coronary Artery Stent GI Surgical History: Reports: Colonoscopy, EGD, Hernia, Inguinal Musculoskeletal Surgical History: Reports: Shoulder Surgery, Other (See Below) Other Musculoskeletal Surgeries/Procedures:: right shoulder surgery 3 weeks ago. previous rtkr and ltkr Social & Family History - Family History Family Medical History: No Pertinent Family History - Caffeine Use Caffeine Use: Reports: Coffee - Living Situation & Occupation Living situation: Reports: , with Spouse Occupation: Retired ED ROS GENERAL - Review of Systems Review Of Systems: See Below Constitutional: Reports: No Symptoms HEENT: Reports: No Symptoms Respiratory: Reports: No Symptoms Cardiovascular: Reports: No Symptoms Endocrine: Reports: No Symptoms GI/Abdominal: Reports: No Symptoms : Reports: No Symptoms Musculoskeletal: Reports: No Symptoms Skin: Reports: No Symptoms Neurological: Reports: Confusion (This is mild and probably at baseline) Psychiatric: Reports: No Symptoms ED EXAM, HEAD INJURY - Physical Exam Exam: See Below Exam Limited By: No Limitations General Appearance: Alert, Moderate Distress Head: Other (Significant abrasion right forehead no laceration requiring repair but he does have a very superficial laceration within this probably more of a skin tear) Nexus Criteria: No: Posterior, Midline Cervical Tenderness, Evidence of Intoxication, Altered Level of Consciousness, Focal Neurological Deficit, Painful Distraction Injuries Eyes: Bilateral Eye: EOMI, Normal Inspection, PERRL Ears: Normal External Exam, Normal Canal, Hearing Grossly Normal, Normal TMs, TM Obscured by Cerumen (Partially obstructed with cerumen) Nose: Normal Inspection, Normal Mucousa, No Blood, Other (He has some dried blood under the left naris no blood wet or dry noted in either nares) Throat/Mouth: Normal Inspection, Normal Lips, Normal Gums, Normal Oropharynx, Normal Voice, No Airway Compromise. No: Normal Teeth (He wears dentures on the upper he has some missing teeth on the lower) Neck: Non-Tender, Full Range of Motion. No: Painful Range of Motion, Spinous Processes Tender, Stiff Neck Respiratory: No Respiratory Distress, Lungs Clear, Normal Breath Sounds Cardiovascular: Regular Rate, Rhythm, No Edema, No Murmur GI/Abdominal Exam: Normal Bowel Sounds, Soft, Non-Tender, Pelvis Stable Back Exam: Normal Inspection. No: CVA Tenderness (L), CVA Tenderness (R), Paraspinal Tenderness, Vertebral Tenderness Extremities: Normal Inspection, No Pedal Edema Neurologic: No Motor/Sensory Deficits - [facility] Coma Score Best Eye Response (Cristino): (4) Open Spontaneously Best Verbal Response ([place]rist[place]): (5) Oriented Best Motor Response ([facility]): (6) Obeys Commands Course - Vital Signs Last Recorded V/S: Last Vital Signs Temp 36.1 C 02/26/21 16:26 Pulse 64 02/26/21 16:26 Resp 20 02/26/21 16:26 BP 156/76 H 02/26/21 16:26 Pulse Ox 97 02/26/21 16:26 - Orders/Labs/Meds Orders: Active Orders 24 hr Category Date Time Status Vaccines to be Administered [RC] PER UNIT ROUTINE Care 02/26/21 16:49 Active Meds: Medications Discontinued Medications Generic Name Dose Route Start Last Admin Trade Name Freq PRN Reason Stop Dose Admin Diphtheria/Tetanus/Acell Pertussis 0.5 ml 02/26/21 16:48 Diphtheria,Pertussis(Acell),Tetanus Vaccine 0.5 Ml Syringe IM 02/26/21 16:49 .ONCE ONE - Re-Assessments/Exams Free Text/Narrative Re-Assessment/Exam: 02/26/21 18:05 Patient had a head CT that does not show any acute changes he may have some accelerated age-related changes from his last study. I discussed these findings with the patient and his and they are assured with this. I also mention that the patient is having some rib discomfort especially with change in position and deep breathing on his right lower rib. He did fall on this side. The pain usually does not bother him unless he turns or takes a deep breath. With the patient's mild dementia and his advanced age there is the possibility of missing a solid organ injury like to the liver. Did offer CT but did like to hold off on this at this point. We will go ahead and discharge they agree to return to the emergency room with any questions or problems. Departure - Departure Time of Disposition: 18:07 Disposition: Home, Self-Care 01 Clinical Impression: Head injury, Contusion of head, Chest wall injury - Discharge Information Forms: ED Department Discharge Additional Instructions: Return to the emergency room with any questions problems or worsening symptoms. Tylenol as needed for discomfort. Follow-up with your regular physician at the end of this week if needed. Sepsis Event Note (ED) - Evaluation Sepsis Screening Result: No Definite Risk - Focused Exam Vital Signs: Vital Signs Temp Pulse Resp BP Pulse Ox 02/26/21 16:26 36.1 C 64 20 156/76 H 97 - My Orders Last 24 Hours: My Active Orders 02/26/21 16:49 Vaccines to be Administered [RC] PER UNIT ROUTINE - Assessment/Plan Last 24 Hours: My Active Orders 02/26/21 16:49 Vaccines to be Administered [RC] PER UNIT ROUTINE
--- NOTE | 2021-02-26 17:31 | CT ---
Head CT Technique: Multiple axial sections through the brain were obtained. Intravenous contrast was not utilized. Reconstructed coronal and sagittal images were obtained. Comparison: Prior head CT study of 01/24/13. Findings: Ventricles along with basal cisterns and sulci over the convexities are mildly prominent. Old lacunar infarct is noted with the left basal ganglia. No other abnormal parenchymal densities are seen. No evidence of intracranial hemorrhage. No midline shift or mass-effect is seen. Diffuse vascular calcification is seen within the vertebral and carotid siphon arteries. Minimal mucosal thickening is seen within the sphenoid and ethmoid sinuses which is likely chronic. No acute calvarial finding is seen. Impression: 1. Minimal sinus findings which I believed are chronic. 2. Senescent change as noted above which has slightly progressed from previous exam. 3. No acute intracranial abnormality is appreciated. Diagnostic code #2
[2021-02-26 20:02] VITALS: BP 160/77; PULSE 60
== END 2021-02-26 18:30 | disposition home or self-care (01) ==
LOC: JD.ED 16:12
DX: S00.83XA Contusion of other part of head, initial encounter (principal); S29.9XXA Unspecified injury of thorax, initial encounter; I25.10 Atherosclerotic heart disease of native coronary artery without angina pectoris; E78.00 Pure hypercholesterolemia, unspecified; I10 Essential (primary) hypertension; I25.2 Old myocardial infarction; E78.5 Hyperlipidemia, unspecified; K21.9 Gastro-esophageal reflux disease without esophagitis; Z79.82 Long term (current) use of aspirin; Z79.899 Other long term (current) drug therapy; Z95.5 Presence of coronary angioplasty implant and graft; Z23 Encounter for immunization; W01.0XXA Fall on same level from slipping, tripping and stumbling without subsequent striking against object, initial encounter
CPT/HCPCS: 70450; 70450-26; 90471; 90715; 99283; 99284-25

== ENCOUNTER 2022-10-31 02:59 | Inpatient (IN) | payer MEDICARE ==
[2022-10-31 03:49] LABS: CORONAVIRUS COVID-19 NAA NEGATIVE (NEGATIVE)
[2022-10-31 04:14] LABS: ESTIMATED GFR 60 mL/min (>60)
[2022-10-31] MEDS ORDERED: Sodium Chloride 0.9% 500 ML IV ONE (04:22)
[2022-10-31] MEDS ORDERED: Sodium Chloride 0.9% 1,000 ML IV SCH (04:30)
[2022-10-31] MEDS ORDERED: Iopamidol 755 Mg/ML 100 ML Bottle IVPUSH ONE (05:46)
[2022-10-31] MEDS ORDERED: Sodium Chloride 0.9% 100 ML IV SCH (06:00)
[2022-10-31] MEDS ORDERED: Piperacillin/Tazobactam 4.5 GM in Sodium Chloride 0.9% 100 ML IV ONE (06:21)
[2022-10-31] MEDS ORDERED: methylPREDNISolone Sodium Succinate 125 MG/2 ML SDV IVPUSH ONE (06:22)
[2022-10-31] MEDS ORDERED: Albuterol 6.7 GM Inhaler INH PRN (08:16)
[2022-10-31] MEDS ORDERED: Non-Formulary Medication 1 Each (Fluticasone Furoate [Arnuity Ellipta] 50 MCG Blst.W.Dev) IN SCH (09:00)
[2022-10-31] MEDS: Venlafaxine 75 MG Cap.ER PO SCH (09:50)
[2022-10-31] MEDS: Rosuvastatin 10 MG Tab PO SCH (09:50)
[2022-10-31] MEDS: Tamsulosin 0.4 MG Cap.ER PO SCH (09:51)
[2022-10-31] MEDS: Aspirin 81 MG Tab.EC PO SCH (09:57)
[2022-10-31] MEDS: LORazepam 0.5 MG Tab PO PRN (10:00)
[2022-10-31] MEDS: Pantoprazole 40 MG Tab.CR PO SCH (10:01)
[2022-10-31] MEDS: Finasteride 5 MG Tab PO SCH (10:01)
[2022-10-31] MEDS: Metoprolol Tartrate 50 MG Tab PO SCH (10:02)
[2022-10-31] MEDS: cefTRIAXone 1 GM in Sodium Chloride 0.9% 100 ML IV SCH (10:03)
[2022-10-31] MEDS ORDERED: oxyCODONE 5 MG Tab PO PRN (12:39)
[2022-10-31] MEDS ORDERED: Ondansetron 4 MG Tab.DIS PO PRN (12:39)
[2022-10-31] MEDS ORDERED: Albuterol/Ipratropium 3.0-0.5 MG/3 ML Neb Soln NEB PRN (12:39)
[2022-10-31] MEDS ORDERED: Morphine 2 MG/ML SYRINGE IVPUSH PRN (12:39)
[2022-10-31] MEDS ORDERED: Docusate Sodium 100 MG Cap PO PRN (12:39)
[2022-10-31] MEDS ORDERED: Acetaminophen 325 MG Tab PO PRN (12:39)
[2022-10-31] MEDS ORDERED: Temazepam 15 MG Cap PO PRN (12:39)
[2022-10-31] MEDS: Heparin Sodium 5,000 Units/ML Vial SUBCUT SCH ×2 (15:20→21:24)
[2022-10-31] MEDS: OLANZapine 5 MG Tab PO SCH (17:31)
[2022-10-31] MEDS ORDERED: SODIUM CHLORIDE 0.9% IV SCH (21:00)
[2022-10-31] MEDS ORDERED: METHYLPREDNISOLONE SOD SUCC IV SCH (21:00)
[2022-10-31] MEDS: methylPREDNISolone Sodium Succinate 125 MG/2 ML SDV IVPUSH SCH (21:24)
[2022-11-01] MEDS: Levothyroxine 50 MCG Tab PO SCH (06:10)
[2022-11-01] MEDS: Pantoprazole 40 MG Tab.CR PO SCH (06:10)
[2022-11-01] MEDS: Heparin Sodium 5,000 Units/ML Vial SUBCUT SCH ×4 (07:22→21:12)
[2022-11-01] MEDS: cefTRIAXone 1 GM in Sodium Chloride 0.9% 100 ML IV SCH (08:21)
[2022-11-01] MEDS: Donepezil 10 MG Tab PO SCH (08:22)
[2022-11-01] MEDS: Tamsulosin 0.4 MG Cap.ER PO SCH (08:27)
[2022-11-01] MEDS: Finasteride 5 MG Tab PO SCH (08:27)
[2022-11-01] MEDS: Metoprolol Tartrate 50 MG Tab PO SCH (08:27)
[2022-11-01] MEDS: Rosuvastatin 10 MG Tab PO SCH (08:27)
[2022-11-01] MEDS: Venlafaxine 75 MG Cap.ER PO SCH (08:27)
[2022-11-01] MEDS: Aspirin 81 MG Tab.EC PO SCH (08:27)
[2022-11-01] MEDS: methylPREDNISolone Sodium Succinate 125 MG/2 ML SDV IVPUSH SCH ×2 (08:28→20:33)
[2022-11-01] MEDS: Memantine 10 MG Tab PO SCH ×2 (08:28→20:33)
[2022-11-01] MEDS: guaiFENesin 600 MG Tab.ER PO SCH ×2 (10:12→20:33)
[2022-11-01] MEDS: Codeine/Promethazine 10-6.25 MG/5 ML Syrup 5 ML UD Cup PO SCH ×2 (12:59→17:39)
[2022-11-01] MEDS: LORazepam 0.5 MG Tab PO PRN (16:36)
[2022-11-01] MEDS: OLANZapine 5 MG Tab PO SCH (17:39)
[2022-11-02] MEDS: Codeine/Promethazine 10-6.25 MG/5 ML Syrup 5 ML UD Cup PO SCH ×4 (01:31→18:01)
[2022-11-02] MEDS: Heparin Sodium 5,000 Units/ML Vial SUBCUT SCH ×5 (06:11→21:56)
[2022-11-02] MEDS: Levothyroxine 50 MCG Tab PO SCH (06:12)
[2022-11-02] MEDS: Pantoprazole 40 MG Tab.CR PO SCH (06:12)
[2022-11-02] MEDS: cefTRIAXone 1 GM in Sodium Chloride 0.9% 100 ML IV SCH (08:21)
[2022-11-02] MEDS: Donepezil 10 MG Tab PO SCH (08:22)
[2022-11-02] MEDS: methylPREDNISolone Sodium Succinate 125 MG/2 ML SDV IVPUSH SCH ×2 (08:24→20:21)
[2022-11-02] MEDS: Aspirin 81 MG Tab.EC PO SCH (08:25)
[2022-11-02] MEDS: Rosuvastatin 10 MG Tab PO SCH (08:25)
[2022-11-02] MEDS: Venlafaxine 75 MG Cap.ER PO SCH (08:25)
[2022-11-02] MEDS: Metoprolol Tartrate 50 MG Tab PO SCH (08:25)
[2022-11-02] MEDS: Tamsulosin 0.4 MG Cap.ER PO SCH (08:25)
[2022-11-02] MEDS: Finasteride 5 MG Tab PO SCH (08:27)
[2022-11-02] MEDS: guaiFENesin 600 MG Tab.ER PO SCH ×2 (08:27→20:21)
[2022-11-02] MEDS: Memantine 10 MG Tab PO SCH ×2 (08:28→20:21)
[2022-11-02] MEDS: OLANZapine 5 MG Tab PO SCH (18:01)
[2022-11-02] MEDS: LORazepam 0.5 MG Tab PO PRN (20:21)
[2022-11-02] MEDS ORDERED: Codeine/Promethazine 10-6.25 MG/5 ML Syrup 5 ML UD Cup PO PRN (22:10)
[2022-11-03] MEDS: Levothyroxine 50 MCG Tab PO SCH (07:23)
[2022-11-03] MEDS: Heparin Sodium 5,000 Units/ML Vial SUBCUT SCH ×3 (07:23→21:44)
[2022-11-03] MEDS: Pantoprazole 40 MG Tab.CR PO SCH (07:23)
[2022-11-03] MEDS: guaiFENesin 600 MG Tab.ER PO SCH ×2 (09:16→21:42)
[2022-11-03] MEDS: Tamsulosin 0.4 MG Cap.ER PO SCH (09:17)
[2022-11-03] MEDS: Venlafaxine 75 MG Cap.ER PO SCH (09:18)
[2022-11-03] MEDS: Finasteride 5 MG Tab PO SCH (09:18)
[2022-11-03] MEDS: methylPREDNISolone Sodium Succinate 125 MG/2 ML SDV IVPUSH SCH ×2 (09:19→21:44)
[2022-11-03] MEDS: Memantine 10 MG Tab PO SCH ×2 (09:19→21:43)
[2022-11-03] MEDS: Donepezil 10 MG Tab PO SCH (09:19)
[2022-11-03] MEDS: Aspirin 81 MG Tab.EC PO SCH (09:19)
[2022-11-03] MEDS: Rosuvastatin 10 MG Tab PO SCH (09:19)
[2022-11-03] MEDS: Metoprolol Tartrate 50 MG Tab PO SCH (09:20)
[2022-11-03] MEDS: cefTRIAXone 1 GM in Sodium Chloride 0.9% 100 ML IV SCH (09:21)
[2022-11-03] MEDS: FLUTICASONE INH SCH ×6 (11:58→23:59)
[2022-11-03] MEDS: VILANTER INH SCH ×6 (11:58→23:59)
[2022-11-03] MEDS: UMECLIDIN INH SCH ×6 (11:58→23:59)
[2022-11-03] MEDS: OLANZapine 5 MG Tab PO SCH (18:48)
[2022-11-03] MEDS ORDERED: cloNIDine 0.1 MG Tab PO PRN (19:27)
[2022-11-03] MEDS ORDERED: hydrALAZINE 25 MG Tab PO ONE (23:50)
[2022-11-04] MEDS: Levothyroxine 50 MCG Tab PO SCH (06:11)
[2022-11-04] MEDS: Heparin Sodium 5,000 Units/ML Vial SUBCUT SCH ×3 (06:11→21:04)
[2022-11-04] MEDS: Pantoprazole 40 MG Tab.CR PO SCH (07:50)
[2022-11-04] MEDS: UMECLIDIN INH SCH (08:33)
[2022-11-04] MEDS: FLUTICASONE INH SCH (08:33)
[2022-11-04] MEDS: VILANTER INH SCH (08:33)
[2022-11-04] MEDS: cefTRIAXone 1 GM in Sodium Chloride 0.9% 100 ML IV SCH (08:36)
[2022-11-04] MEDS: methylPREDNISolone Sodium Succinate 125 MG/2 ML SDV IVPUSH SCH ×2 (08:37→20:52)
[2022-11-04] MEDS: Rosuvastatin 10 MG Tab PO SCH (08:38)
[2022-11-04] MEDS: Metoprolol Tartrate 50 MG Tab PO SCH (08:38)
[2022-11-04] MEDS: Memantine 10 MG Tab PO SCH ×2 (08:38→20:52)
[2022-11-04] MEDS: Venlafaxine 75 MG Cap.ER PO SCH (08:38)
[2022-11-04] MEDS: Donepezil 10 MG Tab PO SCH (08:39)
[2022-11-04] MEDS: Losartan 100 MG Tab PO SCH (08:39)
[2022-11-04] MEDS: Aspirin 81 MG Tab.EC PO SCH (08:40)
[2022-11-04] MEDS: Tamsulosin 0.4 MG Cap.ER PO SCH (08:40)
[2022-11-04] MEDS: guaiFENesin 600 MG Tab.ER PO SCH ×2 (08:40→20:52)
[2022-11-04] MEDS: Finasteride 5 MG Tab PO SCH (08:40)
[2022-11-04] MEDS: OLANZapine 5 MG Tab PO SCH (18:12)
[2022-11-05] MEDS: Heparin Sodium 5,000 Units/ML Vial SUBCUT SCH (05:13)
[2022-11-05] MEDS: Levothyroxine 50 MCG Tab PO SCH (05:13)
[2022-11-05] MEDS: LORazepam 0.5 MG Tab PO PRN (05:22)
[2022-11-05] MEDS: Pantoprazole 40 MG Tab.CR PO SCH ×2 (05:29→06:13)
[2022-11-05] MEDS: UMECLIDIN INH SCH (08:26)
[2022-11-05] MEDS: FLUTICASONE INH SCH (08:26)
[2022-11-05] MEDS: VILANTER INH SCH (08:26)
[2022-11-05] MEDS: cefTRIAXone 1 GM in Sodium Chloride 0.9% 100 ML IV SCH (08:52)
[2022-11-05] MEDS: Rosuvastatin 10 MG Tab PO SCH (08:53)
[2022-11-05] MEDS: Memantine 10 MG Tab PO SCH (08:54)
[2022-11-05] MEDS: Losartan 100 MG Tab PO SCH (08:54)
[2022-11-05] MEDS: Aspirin 81 MG Tab.EC PO SCH (08:54)
[2022-11-05] MEDS: guaiFENesin 600 MG Tab.ER PO SCH (08:54)
[2022-11-05] MEDS: Finasteride 5 MG Tab PO SCH (08:54)
[2022-11-05] MEDS: Tamsulosin 0.4 MG Cap.ER PO SCH (08:54)
[2022-11-05] MEDS: Metoprolol Tartrate 50 MG Tab PO SCH (08:54)
[2022-11-05] MEDS: Donepezil 10 MG Tab PO SCH (08:54)
[2022-11-05 08:55] VITALS: BP 116/67; PULSE 80
[2022-11-05] MEDS: methylPREDNISolone Sodium Succinate 125 MG/2 ML SDV IVPUSH SCH (08:55)
[2022-11-05] MEDS: Venlafaxine 75 MG Cap.ER PO SCH (08:55)
== END 2022-11-05 13:00 | disposition home or self-care (01) | DRG 193 ==
LOC: JD.ED 02:59 → JD.MS 07:12
PROVIDERS: ADMIT Internal Medicine; ATTEND Internal Medicine
DX: J12.1 Respiratory syncytial virus pneumonia (principal); J96.01 Acute respiratory failure with hypoxia; J44.9 Chronic obstructive pulmonary disease, unspecified; J44.0 Chronic obstructive pulmonary disease with (acute) lower respiratory infection; J44.1 Chronic obstructive pulmonary disease with (acute) exacerbation; F32.A Depression, unspecified; E03.9 Hypothyroidism, unspecified; N40.0 Benign prostatic hyperplasia without lower urinary tract symptoms; I10 Essential (primary) hypertension; F41.9 Anxiety disorder, unspecified; I25.10 Atherosclerotic heart disease of native coronary artery without angina pectoris; G47.00 Insomnia, unspecified; G30.9 Alzheimer's disease, unspecified; F02.80 Dementia in other diseases classified elsewhere, unspecified severity, without behavioral disturbance, psychotic disturbance, mood disturbance, and anxiety; Z66 Do not resuscitate; Z96.653 Presence of artificial knee joint, bilateral; Z20.822 Contact with and (suspected) exposure to COVID-19; F32.89 Other specified depressive episodes; K21.9 Gastro-esophageal reflux disease without esophagitis; E78.5 Hyperlipidemia, unspecified; I25.2 Old myocardial infarction; Z86.73 Personal history of transient ischemic attack (TIA), and cerebral infarction without residual deficits; Z79.890 Hormone replacement therapy; Z79.1 Long term (current) use of non-steroidal anti-inflammatories (NSAID); Z79.52 Long term (current) use of systemic steroids; Z79.82 Long term (current) use of aspirin; Z79.899 Other long term (current) drug therapy; Z79.2 Long term (current) use of antibiotics; Z98.42 Cataract extraction status, left eye; Z98.41 Cataract extraction status, right eye; Z95.5 Presence of coronary angioplasty implant and graft; Z98.890 Other specified postprocedural states; Z79.01 Long term (current) use of anticoagulants
CPT/HCPCS: 0241U; 36415; 71045; 71275; 80053; 83605; 83735; 83880; 84484; 85025; 85379; 85610; 85730; 86738; 87040; 93005; 94640; 94760; 94761; 96361; 96365; 96375; 97112; 97116; 97162; 97166; 99285; A9270-GY; J0696; J1644; J2543; J2930; J7030; Q9967

== ENCOUNTER 2023-05-09 13:00 | Emergency (ER) | payer MEDICARE ==
[2023-05-09] MEDS ORDERED: Sodium Chloride 0.9% 10 ML Syringe FLUSH PRN (13:17)
[2023-05-09] MEDS ORDERED: Sodium Chloride 0.9% 1,000 ML IV SCH (13:30)
[2023-05-09 13:59] LABS: BASOPHILS ABSOLUTE AUTO 0.01 K/mm3 (0.01-0.08); BASOPHILS PERCENT AUTO 0.1 % (0.1-1.2); EOSINOPHILS ABSOLUTE AUTO 0.09 K/mm3 (0.04-0.54); HEMATOCRIT 35.9 % (40.1-51.0); IMMATURE GRAN ABSOLUTE AUTO 0.04 K/mm3 (0.00-0.10); IMMATURE GRAN PERCENT AUTO 0.5 % (<=1.0); LYMPHOCYTES PERCENT AUTO 13.7 % (21.8-53.1); MEAN CORPUSCULAR HEMOGLOBIN 30.2 pg (25.7-32.2); MEAN CORPUSCULAR HGB CONC 33.4 g/dl (32.2-35.5); MEAN CORPUSCULAR VOLUME 90.4 fl (79.0-92.2); MEAN PLATELET VOLUME 9.8 fl (9.4-12.3); MONOCYTES ABSOLUTE AUTO 0.63 K/mm3 (0.30-0.82); MONOCYTES PERCENT AUTO 7.2 % (5.3-12.2); NEUTROPHILS ABSOLUTE AUTO 6.79 K/mm3 (1.78-5.38); NEUTROPHILS PERCENT AUTO 77.5 % (34.0-67.9); RED BLOOD CELL COUNT 3.97 M/mm3 (4.63-6.08); WHITE BLOOD CELL COUNT,WBC 8.76 K/mm3 (4.23-9.07)
[2023-05-09 14:00] LABS: PLATELET COUNT,PLT 259 K/mm3 (163-337)
[2023-05-09 14:26] LABS: A/G RATIO 0.9 (1-2); ALANINE AMINOTRANSFERASE,ALT 23 U/L (16-63); ALBUMIN 3.1 g/dl (3.4-5.0); ALKALINE PHOSPHATASE 101 U/L (46-116); ANION GAP 11.5 (5-15); ASPARTATE AMNIOTRANSFERASE,AST 14 U/L (15-37); BILIRUBIN TOTAL 0.3 mg/dL (0.2-1.0); BLOOD UREA NITROGEN,BUN 20 mg/dL (7-18); BUN/CREATININE RATIO 22.2 (14-18); C-REACTIVE PROTEIN 0.3 mg/dL (<1.0); CARBON DIOXIDE,CO2 29 mEq/L (21-32); CHLORIDE,CL 93 mEq/L (98-107); CREATININE 0.9 mg/dL (0.7-1.3); ESTIMATED GFR 84 mL/min (>60); GLUCOSE RANDOM 91 mg/dL (70-99); MAGNESIUM 2.1 mg/dL (1.8-2.4); POTASSIUM,K 4.5 mEq/L (3.5-5.1); PROTEIN TOTAL,TP 6.6 g/dl (6.4-8.2); SODIUM,NA 129 mEq/L (136-145); TROPONIN I HIGH SENSITIVITY 10 pg/mL (<=76)
[2023-05-09 14:44] LABS: APPEARANCE,URINE CLEAR (Clear); BILIRUBIN,URINE NEGATIVE (Negative); COLOR,URINE YELLOW (Yellow); GLUCOSE,URINE NEGATIVE (Negative); KETONES,URINE NEGATIVE (Negative); LEUKOCYTE ESTERASE,URINE NEGATIVE (Negative); NITRITE,URINE NEGATIVE (Negative); OCCULT BLOOD,URINE NEGATIVE (Negative); PROTEIN,URINE TRACE (Negative)
[2023-05-09 14:57] LABS: BACTERIA,URINE FEW /hpf (FEW); MUCUS,URINE FEW /hpf (FEW); RBC,URINE 0-5 /hpf (0-5); SQUAMOUS EPITHELIAL CELLS,UR 0-5 /hpf (0-5); WBC,URINE 0-5 /hpf (0-5)
[2023-05-09] MEDS ORDERED: Metoprolol Tartrate 50 MG Tab PO ONE (15:40)
[2023-05-09] MEDS ORDERED: LORazepam 0.5 MG Tab PO ONE (15:41)
[2023-05-09 16:46] VITALS: BP 185/88; PULSE 56
== END 2023-05-09 16:20 ==
LOC: JD.ED 13:00
DX: F91.1 Conduct disorder, childhood-onset type (principal); F03.90 Unspecified dementia, unspecified severity, without behavioral disturbance, psychotic disturbance, mood disturbance, and anxiety; I25.2 Old myocardial infarction; I25.10 Atherosclerotic heart disease of native coronary artery without angina pectoris; E78.00 Pure hypercholesterolemia, unspecified; I10 Essential (primary) hypertension; J44.9 Chronic obstructive pulmonary disease, unspecified; K21.9 Gastro-esophageal reflux disease without esophagitis; Z79.82 Long term (current) use of aspirin; Z79.899 Other long term (current) drug therapy
CPT/HCPCS: 36415; 70450; 71045; 80053; 81001; 83735; 84484; 85025; 86140; 96360; 96361; 99285; A9270; J3490; J7030; 99284

== ENCOUNTER 2023-05-21 15:47 | Emergency (ER) | payer MEDICARE ==
[2023-05-21] MEDS ORDERED: LORazepam 0.5 MG Tab PO ONE (19:49)
[2023-05-21 22:12] VITALS: BP 121/62; PULSE 61
== END 2023-05-21 22:08 | disposition home or self-care (01) ==
LOC: JD.ED 15:47
DX: F32.1 Major depressive disorder, single episode, moderate (principal); F03.90 Unspecified dementia, unspecified severity, without behavioral disturbance, psychotic disturbance, mood disturbance, and anxiety
CPT/HCPCS: 99283; A9270

== ENCOUNTER 2023-05-22 11:58 | Emergency (ER) | payer MEDICARE ==
[2023-05-22] MEDS ORDERED: Diphtheria,Pertussis(Acell),Tetanus Vaccine 0.5 ML Syringe IM ONE (12:17)
[2023-05-22] MEDS ORDERED: Lidocaine 1% 10 ML MDV INJECT ONE (12:17)
[2023-05-22] MEDS ORDERED: Cephalexin 500 MG Cap PO ONE (14:38)
[2023-05-22 14:55] VITALS: BP 135/78; PULSE 58
== END 2023-05-22 15:03 ==
LOC: JD.ED 11:58
DX: S01.311A Laceration without foreign body of right ear, initial encounter (principal); I25.10 Atherosclerotic heart disease of native coronary artery without angina pectoris; E78.00 Pure hypercholesterolemia, unspecified; I10 Essential (primary) hypertension; I25.2 Old myocardial infarction; K21.9 Gastro-esophageal reflux disease without esophagitis; N40.0 Benign prostatic hyperplasia without lower urinary tract symptoms; Z79.82 Long term (current) use of aspirin; Z79.899 Other long term (current) drug therapy; Z23 Encounter for immunization
CPT/HCPCS: 12015; 70450; 90471; 90715; 99284; A9270; 99283; J3490